=== PATIENT | female | born 1955 | race Caucasian/White ===

== ENCOUNTER → 2018-01-05 13:18 | Outpatient (CLI) | payer OTHER, SELFPAY ==
--- NOTE | 2018-01-05 13:22 | MM_ITS ---
MM Dig screening mamm BI w/CAD CAD Screening COMPARISON: Digital right mammogram 07/14/2017 and digital bilateral mammograms 01/09/2017 INDICATION: There is no personal or family history of breast cancer. There is been previous excisional biopsy right breast. TECHNIQUE: Standard CC and MLO images were obtained. R2 CAD reviewed. FINDINGS: There is a diffusely dense and heterogenic parenchyma which lessens the sensitivity of mammography. The biopsy site central portion right breast shows interval contraction from the previous studies as expected. Multiple benign-appearing calcination is or again seen in both breast most typical of sclerosing adenosis. There is no new or suspicious lesion in either breast and there are no suspicious microcalcifications. IMPRESSION: Dense parenchymal pattern with interval contraction of previous biopsy site and with no suspicious lesion seen recommend yearly follow-up BI-RADS Category: 2 Benign Finding(s) RECOMMENDED FOLLOW-UP: 1YR - 1 YEAR FOLLOW-UP (A letter has been sent to the patient regarding results of the study.)
== END ==
PROVIDERS: Family Provider Family Medicine; PCP Family Medicine; Visit Provider Obstetrics & Gynecology
DX: R92.8 Other abnormal and inconclusive findings on diagnostic imaging of breast (principal)
CPT/HCPCS: 77067

== ENCOUNTER → 2018-01-08 14:37 | Outpatient (POV) | payer OTHER, SELFPAY | PROVIDERS: Family Provider Family Medicine; PCP Family Medicine; Visit Provider Physician Assistant | DX: Z00.00 Encounter for general adult medical examination without abnormal findings (principal) ==

== ENCOUNTER → 2018-04-09 13:57 | Outpatient (POV) | payer OTHER, SELFPAY | PROVIDERS: Visit Provider Physician Assistant | DX: Z00.00 Encounter for general adult medical examination without abnormal findings (principal) ==

== ENCOUNTER → 2018-08-07 10:51 | Outpatient (CLI) | payer OTHER, SELFPAY ==
--- NOTE | 2018-08-07 10:54 | XR_ITS ---
XR shoulder LT min 2V HISTORY: ITS.REASON: LT SHOULDER PAIN ORDERING PHYSICIAN: Piero Basurto MD PATIENT AGE: 63 years Comparison: None FINDINGS: No fracture or dislocation. No lytic or blastic change. There is normal mineralization. There are mild osteoarthritic changes of the acromioclavicular joint. The glenohumeral joint has an unremarkable appearance. IMPRESSION: Minimal osteoarthritis of the AC joint otherwise negative left shoulder
== END ==
PROVIDERS: PCP Family Medicine; Visit Provider Family Medicine
DX: M25.512 Pain in left shoulder (principal)
CPT/HCPCS: 73030

== ENCOUNTER → 2019-02-05 10:09 | Outpatient (CLI) | payer OTHER, SELFPAY ==
--- NOTE | 2019-02-05 10:10 | MM_ITS ---
MM Dig screening mamm BI w/CAD CAD Screening COMPARISON: Digital mammograms with CAD 01/05/2018 and digital right mammogram with CAD 07/14/2017 INDICATION: There is no personal or family history of breast cancer. There has been a previous stereotactic biopsy right breast for benign disease. TECHNIQUE: Standard CC and MLO images were obtained. R2 CAD reviewed. FINDINGS: There is a diffusely dense and heterogenic parenchymal pattern lessening the sensitivity of mammography. There are scattered benign-appearing microcalcifications in each breast. There is minimal post biopsy scarring central portion of the right breast. There is arterial calcification in each breast. There is no suspicious lesion and no suspicious microcalcifications. IMPRESSION: Stable exam with no suspicious lesion seen recommend yearly follow-up BI-RADS Category: 2 Benign Finding(s) RECOMMENDED FOLLOW-UP: 1YR - 1 YEAR FOLLOW-UP (A letter has been sent to the patient regarding results of the study.)
== END ==
PROVIDERS: PCP Family Medicine; Visit Provider Obstetrics & Gynecology
DX: Z12.31 Encounter for screening mammogram for malignant neoplasm of breast (principal)
CPT/HCPCS: 77067

== ENCOUNTER → 2019-02-12 14:33 | Outpatient (CLI) | payer OTHER, SELFPAY | PROVIDERS: Visit Provider Family Medicine | DX: D64.9 Anemia, unspecified (principal) | CPT/HCPCS: 36415; 86850 ==

== ENCOUNTER 2019-02-13 08:40 | Outpatient (CLI) | payer OTHER, SELFPAY ==
[2019-02-13] VITALS (18 sets, daily range): BP systolic 96–132; BP diastolic 39–63; PULSE 82–91; RESP 16–18; TEMP 36.6–36.9; O2SAT 99; BMI 30.2
[2019-02-13 09:27] LABS: Hematocrit 25.3 % (37.0-47.0)
[2019-02-13 09:31] LABS: Hemoglobin 6.8 g/dL (12.2-16.2)
--- NOTE | 2019-02-13 10:16 | PC.NURSE ---
1013 - TRANSFUSION STARTED INFUSING AT 100 ML/HR AT THIS TIME.
--- NOTE | 2019-02-13 11:37 | PC.NURSE ---
1043 - INCREASED RATE TO 150 ML/HR AT THIS TIME.
--- NOTE | 2019-02-13 11:41 | PC.NURSE ---
1113 - INCREASED RATE TO 200 ML/HR AT THIS TIME.
--- NOTE | 2019-02-13 11:58 | PC.NURSE ---
RATE WAS INCREASED TO 250ML/HR AT 1143.
--- NOTE | 2019-02-13 12:28 | PC.NURSE ---
1225 - TRANSFUSION STARTED AT 100 ML/HR AT THIS TIME.
--- NOTE | 2019-02-13 13:43 | PC.NURSE ---
1255 - INCREASED RATE TO 150 ML/HR AT THIS TIME.
--- NOTE | 2019-02-13 13:50 | PC.NURSE ---
1325 - INCREASED RATE TO 200 ML/HR AT THIS TIME.
--- NOTE | 2019-02-13 14:19 | PC.NURSE ---
RATE INCREASED TO 250 ML/HR AT 1355.
--- NOTE | 2019-02-13 15:28 | PC.NURSE ---
1515 - BLOOD ALSO DRAWN FROM IV AT THIS TIME FOR 1 HR POST HGB/HCT.
[2019-02-13 15:45] LABS: Hemoglobin 9.4 g/dL (12.2-16.2)
== END 2019-02-13 16:00 | disposition home or self-care (01) ==
LOC: INF 08:56
PROVIDERS: Visit Provider Family Medicine
DX: D64.9 Anemia, unspecified (principal)
CPT/HCPCS: 36430; 85014; 85018; P9016

== ENCOUNTER → 2019-02-15 08:20 | Outpatient (CLI) | payer OTHER, SELFPAY ==
--- NOTE | 2019-02-15 08:29 | US_ITS ---
US transvaginal HISTORY: ITS.REASON: ovarian mass ORDERING PHYSICIAN: Gianni Carpio MD PATIENT AGE: 64 years Comparison: 01/16/2017 FINDINGS: The uterus is 5.4 x 5.4 x 4.4 cm with a combined endometrial thickness of 5 mm. Small amount fluid is present in the cul-de-sac and periuterine area. There are 2 fibroids in the region of body uterus one laterally on the right at 1 cm and one anteriorly at 1.4 cm. The right ovary is 5.4 x 5.4 cm and contains a complex cyst measuring 3.4 x 3 cm with some internal septations. This has developed since the previous exam. The left ovary has an unremarkable appearance of 1.7 cm. IMPRESSION: 1. Enlarged right ovary containing a complex cyst. There is a small amount fluid in the cul-de-sac Follow-up recommended. 2. There are 2 small uterine fibroids
== END ==
PROVIDERS: PCP Family Medicine; Visit Provider Obstetrics & Gynecology
DX: N83.9 Noninflammatory disorder of ovary, fallopian tube and broad ligament, unspecified (principal)
CPT/HCPCS: 76830

== ENCOUNTER → 2019-02-15 09:31 | Outpatient (CLI) | payer OTHER, SELFPAY ==
[2019-02-16 12:41] LABS: Cancer Antigen (CA) 125 13.9 U/mL (0.0-38.1)
== END ==
PROVIDERS: Visit Provider Obstetrics & Gynecology
DX: N83.9 Noninflammatory disorder of ovary, fallopian tube and broad ligament, unspecified (principal); C79.31 Secondary malignant neoplasm of brain
CPT/HCPCS: 36415; 86316

== ENCOUNTER → 2020-02-25 10:49 | Outpatient (POV) | payer MEDICARE, OTHER, SELFPAY | PROVIDERS: PCP Family Medicine; Visit Provider Physician Assistant | DX: Z00.00 Encounter for general adult medical examination without abnormal findings (principal) ==

== ENCOUNTER → 2020-05-15 15:05 | Outpatient (CLI) | payer MEDICARE, OTHER, SELFPAY ==
--- NOTE | 2020-05-15 15:09 | MM_ITS ---
PROCEDURE: MM DIG SCREENING MAMM BI W/CAD Digital Breast Tomosynthesis Included CLINICAL INDICATION: SCREENING There is no personal or family history of breast cancer. There has been a previous biopsy right breast for benign disease. COMPARISON: DMDXUR DIG MAMM-DX UNI-RT W/CAD from 07/14/2017 [facility] MM Dig screening mamm BI w/CAD from 01/05/2018 [facility] MM Dig screening mamm BI w/CAD from 02/05/2019 TECHNIQUE: Standard CC and MLO images and 3D Tomosynthesis was obtained. R2 CAD reviewed. FINDINGS: Prominent diffuse heterogenic fibroglandular densities are seen throughout both breasts. There is moderate arterial calcification in each breast. There are scattered benign-appearing microcalcifications in each breast many of which are typical of sclerosing adenosis and there is a biopsy clip right breast. The small area of scarring right breast from the previous biopsy is stable. There is no suspicious lesion and no suspicious microcalcifications. IMPRESSION: Moderately and diffusely dense parenchymal pattern with no suspicious lesions seen BI-RAD Category: 2 Benign Finding(s) FOLLOW-UP: 1YR 1 Year Follow-up (A letter has been sent to the patient regarding results of the study.) Dictated by: Dr. Richard Morris MD 05/18/2020 16:[address] Richard Morris MD in [place] 05/18/2020 16:42
== END ==
PROVIDERS: PCP Family Medicine; Visit Provider Obstetrics & Gynecology Gynecologic Oncology
DX: Z12.31 Encounter for screening mammogram for malignant neoplasm of breast (principal)
CPT/HCPCS: 77063; 77067

== ENCOUNTER → 2020-12-29 10:13 | Outpatient (CLI) | payer MEDICARE, OTHER, SELFPAY ==
[2020-12-29 12:01] LABS: Coronavirus 19 IgG Antibody Negative (Negative); Coronavirus 19 IgM Antibody Negative (Negative)
== END ==
PROVIDERS: Visit Provider Surgery
DX: Z11.52 Encounter for screening for COVID-19; Z12.11 Encounter for screening for malignant neoplasm of colon; Z01.818 Encounter for other preprocedural examination
CPT/HCPCS: 36415; 86328

== ENCOUNTER 2020-12-31 07:26 | Day surgery (SDC) | payer MEDICARE, OTHER, SELFPAY ==
[2020-12-29 13:44] VITALS: BMI 29.2
[2020-12-31 07:48] VITALS: BP 159/80; PULSE 76; RESP 18; TEMP 36.2; O2SAT 100
[2020-12-31 08:00] LABS: POC Glucose,Bedside 79 (70-110)
[2020-12-31 08:43] VITALS: O2SAT 100
--- NOTE | 2020-12-31 08:49 | HMH.ANESCL ---
[facility] Anesthesia Checklist - Structural Data Admitted From: Home Planned Operative Procedure/s: colonoscopy Consent for Planned Operative Procedure(s) Verified: Yes - Additional verifications Anesthesia Reactions: No - Airway Assessment C-Spine Mobility Assessed: Yes TMJ Mobility Assessed: Yes Dentition: Good Dentition - Neurological Assessment Level of Consciousness: Awake, Alert, Appropriate - Anesthesia Plan Anesthesia Risk discussed: Yes Anesthesia Plan: Verified ASA Class: III Anesthesia Type: MAC [facility] History I have reviewed the patient's past medical history: Yes Medical History: Reports:: Cancer (brain), Diabetes Mellitus Type 2 Denies:: Diabetes Mellitus Type 1, Lung Disease, MRSA, Seizures *Have you ever received a pneumonia vaccine?: Yes *Have you received a flu vaccine this season?: Yes Other Medical History: Reports: Anemia, Other Anesthesia experience/problems:: none Laterality Cases: Bilateral: Tonsillectomy Other Surgeries: Yes: Appendectomy, Cancer Surgery, Cholecystectomy, Colonoscopy, Tubal Ligation, Other Amputation: No Fractures: No - *Social History Last grade of school completed: High school graduate Smoking Status: Never smoker Alcohol Intake: never Alcohol Intake Frequency:: other Substance Use Type: denies use *Occupational Status:: retired Housing: house Household Members: spouse *Travel in the last 8 weeks: None Family Hx:: No significant family history
[2020-12-31 09:20] VITALS: BP 113/58; PULSE 84; RESP 18; TEMP 36.2; O2SAT 99
--- NOTE | 2020-12-31 09:21 | HMH.SCOPE ---
- Procedure: Date: 12/31/20 Patient Date of :: 1955 Procedure Performed:: Colonoscopy Indications:: History of colon polyps History of metastatic melanoma (metastatic colonic polyp at 43 cm) Performing Provider:: Gopal Velazquez MD Referring Provider:: . Sedation:: Monitored anesthesia care Procedure:: After informed consent was obtained the patient was taken to the endoscopy suite. Sedation ensued after the patient was transferred to the left lateral decubitus position. Pulse, blood pressure, and oxygen saturation were monitored throughout the procedure. Digital rectal exam revealed no significant abnormality. The colonoscope was placed in position. The entire colon was evaluated. The colonoscope was carefully removed and the patient was transferred to recovery in stable condition. Please see findings and specimens below for detail. Findings:: Mild to moderate hemorrhoidal cushions Bowel preparation moderate Moderate spasticity and tortuosity No obvious polypoid lesions No obvious metastatic lesions Normal colonic mucosa in and around tattoo site at 43 cm Specimens:: None Recommendations:: Repeat colonoscopy in 3-5 years Complications:: No immediate Estimated blood obtained (mL): 0
[2020-12-31 09:30] VITALS: BP 140/60; PULSE 82; RESP 18; O2SAT 96
[2020-12-31 09:50] VITALS: BP 152/62; PULSE 65; RESP 18; O2SAT 97
== END 2020-12-31 09:53 | disposition home or self-care (01) ==
LOC: OUTP 07:28
PROVIDERS: PCP Family Medicine; Visit Provider Surgery
PROC: 0DJD8ZZ Inspection of Lower Intestinal Tract, Via Natural or Artificial Opening Endoscopic (ICD-10-PCS; CPT G0105; principal; 2020-12-31 08:30)
DX: Z12.11 Encounter for screening for malignant neoplasm of colon (principal); K58.9 Irritable bowel syndrome, unspecified; K56.2 Volvulus; K64.9 Unspecified hemorrhoids; Z85.038 Personal history of other malignant neoplasm of large intestine; Z86.010 Personal history of colon polyps; Z85.841 Personal history of malignant neoplasm of brain; E11.9 Type 2 diabetes mellitus without complications; Z79.890 Hormone replacement therapy; Z79.84 Long term (current) use of oral hypoglycemic drugs; Z79.899 Other long term (current) drug therapy
CPT/HCPCS: G0105; 82962

== ENCOUNTER → 2021-05-18 10:42 | Outpatient (CLI) | payer MEDICARE, OTHER, SELFPAY ==
--- NOTE | 2021-05-18 10:45 | MM_ITS ---
PROCEDURE INFORMATION: Exam: MG Screening 3D Mammography Exam date and time: 05/18/2021 10:45 AM Age: 66 years old Clinical indication: Screening mammogram TECHNIQUE: Imaging protocol: Screening tomosynthesis and 2D mammography including computer-aided detection (CAD) when performed. COMPARISON: 1. MG MM DIG SCREENING MAMM BI W/CAD 05/15/2020 3:09 PM 2. MG [facility] MM Dig screening mamm BI w/CAD 02/05/2019 10:27 AM 3. MG [facility] MM Dig screening mamm BI w/CAD 01/05/2018 1:45 PM 4. MG DMDXUR DIG MAMM-DX UNI-RT W/CAD 07/14/2017 1:08 PM FINDINGS: MAMMOGRAPHY: Breast composition: The breast tissue is heterogeneously dense, which may obscure small masses. Mass: See Asymmetric density finding. Architectural distortion: Stable postoperative distortion in the right breast. Calcifications: Stable extensive groups and clusters the calcifications are present. No new or suspicious cluster of microcalcifications have developed. Asymmetric density: Stable focal asymmetries are present in the bilateral breast. No new or morphologically suspicious nodule has developed to suggest malignancy. Skin thickening: None. Axillary adenopathy: None. IMPRESSION: No mammographic evidence of malignancy. Recommend annual screening mammography unless otherwise clinically indicated. ASSESSMENT: BI-RADS category 2: Benign
== END ==
PROVIDERS: PCP Family Medicine; Visit Provider Obstetrics & Gynecology Gynecologic Oncology
DX: Z12.31 Encounter for screening mammogram for malignant neoplasm of breast (principal)
CPT/HCPCS: 77063; 77067

== ENCOUNTER 2022-05-11 15:32 | Emergency (ER) | payer MEDICARE, OTHER, SELFPAY ==
[2022-05-11] VITALS (10 sets, daily range): BP systolic 132–175; BP diastolic 47–76; PULSE 90–109; RESP 18–20; TEMP 37.2–39.1; O2SAT 95–100; BMI 32.3
--- NOTE | 2022-05-11 15:44 | XR_ITS ---
FINAL REPORT CLINICAL HISTORY: fever COMPARISON: 01/31/2017 FINDINGS: A single portable view of the chest was obtained. The heart size and pulmonary vascularity are within normal limits. The mediastinum is within normal limits. No acute pulmonary abnormality is identified. The bony thorax is intact. IMPRESSION: No active cardiopulmonary disease. Reviewed, Interpreted and Dictated by Wade Mercado III, MD Transcribed by Ratna Fernandez Authenticated and [facility]
--- NOTE | 2022-05-11 16:02 | PC.NURSE ---
family was at nurses station asking about pt, wanting to know if pt had covid. Informed family that pt was tested but results were still pending, family decided to wait in the lobby until further testing was back.
--- NOTE | 2022-05-11 16:04 | PC.NURSE ---
MARCIAL SAMANO at
--- NOTE | 2022-05-11 16:04 | PC.NURSE ---
pt was able answer question appropriate, states she is unsure while she is here, she feels fine.
--- NOTE | 2022-05-11 16:15 | PC.NURSE ---
out to lobby to speak with pts family per their request to no enter pt room at this time r/t covid results pending at this time. Pt family gave health hx information on pt, reports pt takes hydrocortisone twice daily r/t she does not produce steroids . Pt family gave me pt medication list. Also reports pt has hx of melanoma pt is currently in remission but does take immunotherapy treatments monthly.
--- NOTE | 2022-05-11 16:21 | CT_ITS ---
PROCEDURE INFORMATION: Exam: CT Head Without Contrast Exam date and time: 05/11/2022 4:26 PM Age: 67 years old Clinical indication: Altered mental status/memory loss; Additional info: AMS TECHNIQUE: Imaging protocol: Computed tomography of the head without contrast. Radiation optimization: All CT scans at this facility use at least one of these dose optimization techniques: automated exposure control; mA and/or kV adjustment per patient size (includes targeted exams where dose is matched to clinical indication); or iterative reconstruction. COMPARISON: No relevant prior studies available. FINDINGS: Brain: Age related brain involution is present. No acute intracranial hemorrhage, mass effect, midline shift, or brain herniation. Diffuse subcortical and periventricular white matter hypodensities are most in favor with chronic small vessel disease. More pronounced focal small vessel disease versus encephalomalacia in the left parietal periventricular white matter. Lim-white matter differentiation remains well preserved. Intracranial atherosclerosis is present. Cerebral ventricles: There is ex vacuo ventriculomegaly. Paranasal sinuses: There is fluid within the sinuses, consistent with sinusitis. Mastoid air cells: Visualized mastoid air cells are well aerated. Bones/joints: Left parietal craniotomy without complications. No acute skeletal abnormality or aggressive osseous lesion. Soft tissues: Unremarkable. IMPRESSION: No acute intracranial pathology.
--- NOTE | 2022-05-11 16:40 | PC.NURSE ---
assisted pt to bathroom, pt pants changed and placed in a gown with new sheets placed on bed. PT states she is feeling better.
--- NOTE | 2022-05-11 16:40 | PC.NURSE ---
pt return from radiology via wheelchair
[2022-05-11 16:52] LABS: Influenza A, PCR Not Detected (NotDetected); Influenza B, PCR Not Detected (NotDetected); Microscopic, Urine URINE MICROSCOPIC (MICROSCOPIC)
[2022-05-11 16:56] LABS: Appearance,Urine CLEAR (Clear); Bilirubin,Urine Negative (Negative); Blood, Urine 1+ (Negative); Color,Urine YELLOW (Yellow); Glucose,Urine (UA) Negative (Negative); Ketones,Urine Negative (Negative); Leukocyte Esterase,Urine 1+ (Negative); Nitrate,Urine Negative (Negative); PH,Urine 7.5 (5.0-8.5); Protein,Urine Negative (Negative); Specific Gravity, Urine 1.015 (1.005-1.030); Urobilinogen,Urine 0.2 EU/dl (0.2)
[2022-05-11 16:59] LABS: Basophils # 0.1 K/mm3 (0-0.2); Basophils % 0.7 % (0.1-2.0); Chloride 101 mmol/L (98-107); Eosinophils # 0.1 K/mm3 (0.0-0.4); Eosinophils % 0.8 % (0.1-12.0); Hematocrit 42.5 % (37.0-47.0); Hemoglobin 14.7 g/dL (12.2-16.2); Lymphocytes # 1.3 K/mm3 (0.7-4.5); Lymphocytes % 17.8 % (10-50); Mean Corpuscular HGB Conc 34.5 g/dL (31.8-35.4); Mean Corpuscular Hemoglobin 29.6 pg (27.0-31.2); Mean Corpuscular Volume 85.8 fl (81-99); Mean Platelet Volume 7.5 fl (7.4-10.4); Monocytes # 0.6 K/mm3 (0.1-1.0); Monocytes % 7.8 % (1.7-9.3); Neutrophils # 5.2 K/mm3 (1.8-7.8); Neutrophils % 72.9 % (37.0-80.0); Platelet Count 137 K/mm3 (142-424); Red Blood Count 4.95 M/mm3 (4.20-5.40); Red Cell Distribution Width 13.4 % (11.5-17.5); White Blood Count 7.1 K/mm3 (4.8-10.8)
[2022-05-11 17:00] LABS: Potassium 3.8 mmoL/L (3.5-5.1); Sodium 133 mmol/L (136-145)
[2022-05-11 17:02] LABS: Blood Urea Nitrogen 24 mg/dl (7-17); Creatinine Clearance Estimated 78 mL/min (50-200); Estimated Glomerular Filt Rate 55 ml/min (>60); GFR (African American) 67 ML/MIN (>60)
[2022-05-11 17:03] LABS: Alanine Aminotransferase 16 U/L (12-78); Albumin Level 4.3 g/dl (3.5-5.0); Albumin/Globulin Ratio 1.5 (1.1-1.8); Alkaline Phosphatase 61 U/L (38-126); Anion Gap 12.8 mEq/L (5-15); Aspartate Amino Transferase 40 U/L (14-36); Bilirubin,Total 1.1 mg/dl (0.2-1.3); Calcium 9.2 mg/dl (8.4-10.2); Carbon Dioxide 23 mmol/L (22.0-30.0); Globulin 2.8 g/dL (1.3-3.2); Glucose 110 mg/dl (74-100); Lipase 120 U/L (23-300); Total Protein,Serum 7.1 g/dl (6.3-8.2)
--- NOTE | 2022-05-11 17:08 | PC.NURSE ---
updated pt family at this time, will be approx 30 minutes until covid swab result per lab staff. Pt family was wanting to visit with pt but they want to wait on covid swab results. Notified family pt is resting in bed at this time and we will update them when swab results are available.
[2022-05-11 17:30] LABS: Troponin I < 0.01 ng/ml (0.00-0.034)
[2022-05-11 17:34] LABS: Coronavirus 19, PCR Detected (NotDetected)
[2022-05-11 17:37] LABS: Bacteria,Urine 2+ /lpf; Squamous Epithelial Cell,Urine Occasional #/hpf (0-5)
[2022-05-11 17:38] LABS: Lactic Acid 1.7 mmol/L (0.7-2.1)
--- NOTE | 2022-05-11 17:44 | PC.NURSE ---
updated pt family with pt POC at this time
--- NOTE | 2022-05-11 17:51 | PC.NURSE ---
gave pt socks, explained to pt and family that due to pt fever we cant give a warm blanket at this time. pt and family understandable
--- NOTE | 2022-05-11 19:06 | HMH.EDFEV ---
ED Disposition Clinical Impression: Bronchitis due to COVID-19 virus Disposition: Home, Self-Care Condition on Discharge: Good Instructions: Coronavirus Disease 2019 Prescriptions: methylPREDNISolone [Medrol 4mg tab] 4 mg PO DIRECTED #21 tab Transmission Status: Pending to [id number] Referrals: Piero Basurto MD [Primary Care Provider] - - Critical Care Critical Care Time: No Attestation: On 05/11/22, the high probability of a clinically significant, sudden or life threatening deterioration of the following system(s) required my full and direct attention, intervention and personal management. The time I documented below is in addition to time spent performing reported procedures but includes the following listed in this critical care notation. Medical Decision Making - Medical Records Medical records reviewed: Yes: I reviewed the patient's medical records. - Zaid Inquiry Pt receiving controlled substance: No Vital Signs: 05/11/22 15:32 05/11/22 15:45 05/11/22 16:00 Temperature 102.3 F H Temperature Source Oral Pulse Rate 109 H 103 H Pulse Rate [Left Radial] 102 H Respiratory Rate 20 Blood Pressure 175/75 H 157/73 H Blood Pressure [Right Arm] 175/75 H Blood Pressure Mean 105 Blood Pressure Mean [Right Arm] 108 Blood Pressure Source Automatic Cuff Blood Pressure Source [Right Arm] Automatic Cuff Blood Pressure Position Sitting Blood Pressure Position [Right Arm] Sitting 02 Sat by Pulse Oximetry 100 98 95 Oxygen Delivery Method Room Air Room Air 05/11/22 16:52 05/11/22 17:00 05/11/22 17:04 Temperature 100.2 F H Temperature Source Oral Pulse Rate 103 H 98 H Pulse Rate [Left Radial] Respiratory Rate Blood Pressure 132/61 136/76 Blood Pressure [Right Arm] Blood Pressure Mean 101 96 Blood Pressure Mean [Right Arm] Blood Pressure Source Blood Pressure Source [Right Arm] Blood Pressure Position Blood Pressure Position [Right Arm] 02 Sat by Pulse Oximetry 95 99 Oxygen Delivery Method 05/11/22 17:30 05/11/22 18:00 05/11/22 18:30 Temperature 101.2 F H Temperature Source Pulse Rate 94 H 102 H 92 H Pulse Rate [Left Radial] Respiratory Rate Blood Pressure 138/48 L 132/47 L 136/68 Blood Pressure [Right Arm] Blood Pressure Mean 78 84 91 Blood Pressure Mean [Right Arm] Blood Pressure Source Blood Pressure Source [Right Arm] Blood Pressure Position Blood Pressure Position [Right Arm] 02 Sat by Pulse Oximetry 100 100 97 Oxygen Delivery Method - Lab Data Lab Results 05/11/22 16:35: WBC 7.1, RBC 4.95, Hgb 14.7, Hct 42.5, MCV 85.8, MCH 29.6, MCHC 34.5, RDW 13.4, Plt Count 137 L, MPV 7.5, Neut % (Auto) 72.9, Lymph % (Auto) 17.8, [place] % (Auto) 7.8, Eos % (Auto) 0.8, Baso % (Auto) 0.7, Neut # (Auto) 5.2, Lymph # (Auto) 1.3, [place] # (Auto) 0.6, Eos # (Auto) 0.1, Baso # (Auto) 0.1 05/11/22 16:35: Sodium 133 L, Potassium 3.8, Chloride 101, Carbon Dioxide 23, Anion Gap 12.8, BUN 24 H, Creatinine 1.00, Estimated Creat Clear 78, Estimated GFR 55 L, Est GFR ( Amer) 67, Glucose 110 H, Calcium 9.2, Total Bilirubin 1.1, AST 40 H, ALT 16, Alkaline Phosphatase 61, Troponin I < 0.01, Total Protein 7.1, Albumin 4.3, Globulin 2.8, Albumin/Globulin Ratio 1.5, TSH 1.00 05/11/22 16:35: SARS-CoV-2 (PCR) Detected A, Influenza A Untype (PCR) Not detected, Influenza Type B (PCR) Not detected 05/11/22 16:35: Urine Color Yellow, Urine Appearance Clear, Urine pH 7.5, Ur Specific Jbphh 1.015, Urine Protein Negative, Urine Glucose (UA) Negative, Urine Ketones Negative, Urine Blood 1+, Urine Nitrate Negative, Urine Bilirubin Negative, Urine Urobilinogen 0.2, Ur Leukocyte Esterase 1+ A, Urine RBC 3-5, Urine WBC 3-5, Ur Squamous Epith Cells Occasional, Urine Bacteria 2+ 05/11/22 16:35: Lipase 120 05/11/22 17:03: Lactate 1.7 Result diagrams: 05/11/22 16:35 05/11/22 16:35 Orders (Tests/Meds): ED MEDI
== END 2022-05-11 19:41 | disposition home or self-care (01) ==
PROVIDERS: Emergency Provider Emergency Medicine; PCP Family Medicine
DX: U07.1 COVID-19 (principal); J40 Bronchitis, not specified as acute or chronic; N39.0 Urinary tract infection, site not specified; Z79.890 Hormone replacement therapy; Z79.84 Long term (current) use of oral hypoglycemic drugs; Z79.899 Other long term (current) drug therapy; Z85.841 Personal history of malignant neoplasm of brain; E11.9 Type 2 diabetes mellitus without complications; D64.9 Anemia, unspecified
CPT/HCPCS: 70450; 71045; 80053; 81001; 83605; 83690; 84443; 84484; 85025; 87086; 87088; 87186; 96365; 96375; 99284; C9803; U0003; U0005

== ENCOUNTER → 2022-07-12 09:49 | Outpatient (CLI) | payer MEDICARE, OTHER, SELFPAY ==
--- NOTE | 2022-07-12 09:54 | MM_ITS ---
PROCEDURE INFORMATION: Exam: MG Bilateral Screening 3D Mammography Exam date and time: 07/12/2022 9:47 AM Age: 67 years old Clinical indication: Screening examination TECHNIQUE: Imaging protocol: Bilateral Screening tomosynthesis and 2D mammography including computer-aided detection (CAD) when performed. COMPARISON: 1. MG MM DIG SCREENING MAMM BI W/CAD 05/18/2021 10:44 AM 2. MG MM DIG SCREENING MAMM BI W/CAD 05/15/2020 3:09 PM FINDINGS: MAMMOGRAPHY: Breast composition: The breasts are heterogeneously dense, which may obscure small masses. Mass: None. Architectural distortion: None. Calcifications: No suspicious calcifications. Asymmetric density: None. Skin thickening: None. Axillary adenopathy: None. IMPRESSION: No mammographic evidence of malignancy. Annual screening is recommended unless otherwise clinically indicated. ASSESSMENT: BI-RADS Category 1: Negative
== END ==
PROVIDERS: PCP Family Medicine; Visit Provider Obstetrics & Gynecology Gynecologic Oncology
DX: Z12.31 Encounter for screening mammogram for malignant neoplasm of breast (principal)
CPT/HCPCS: 77063; 77067

== ENCOUNTER → 2022-09-07 14:42 | Outpatient (CLI) | payer MEDICARE, OTHER, SELFPAY ==
[2022-09-07 15:07] LABS: Coronavirus 19, PCR Not Detected (NotDetected); Influenza A, PCR Not Detected (NotDetected); Influenza B, PCR Not Detected (NotDetected)
[2022-09-07 15:11] LABS: Basophils % 0.4 % (0.1-2.0); Eosinophils # 0.2 K/mm3 (0.0-0.4); Eosinophils % 1.5 % (0.1-12.0); Hematocrit 43.9 % (37.0-47.0); Hemoglobin 14.5 g/dL (12.2-16.2); Lymphocytes # 1.3 K/mm3 (0.7-4.5); Lymphocytes % 11.4 % (10-50); Mean Platelet Volume 8.2 fl (7.4-10.4); Monocytes # 0.6 K/mm3 (0.1-1.0); Monocytes % 5.3 % (1.7-9.3); Neutrophils # 9.5 K/mm3 (1.8-7.8); Neutrophils % 81.3 % (37.0-80.0); Platelet Count 226 K/mm3 (142-424); Red Blood Count 4.83 M/mm3 (4.20-5.40); Red Cell Distribution Width 14.3 % (11.5-17.5); White Blood Count 11.7 K/mm3 (4.8-10.8)
[2022-09-07 16:21] LABS: Strep Scrn Group A (Rapid) Negative (Negative)
== END ==
PROVIDERS: PCP Family Medicine; Visit Provider Physician Assistant
DX: Z20.822 Contact with and (suspected) exposure to COVID-19 (principal)
CPT/HCPCS: 36415; 85025; 87430; C9803; U0003; U0005

== ENCOUNTER → 2022-10-20 20:38 | Outpatient (CLI) | payer MEDICARE, OTHER, SELFPAY | PROVIDERS: PCP Student in an Organized Health Care Education/Training Program; Visit Provider Student in an Organized Health Care Education/Training Program | DX: U07.1 COVID-19 | CPT/HCPCS: C9803; U0003; U0005 ==

== ENCOUNTER → 2022-11-29 10:17 | Outpatient (CLI) | payer MEDICARE, OTHER, SELFPAY ==
--- NOTE | 2022-11-29 10:21 | CT_ITS ---
FINAL REPORT TECHNIQUE: Axial CT images were performed from the lung bases through the pubic symphysis. Coronal reformats were submitted and reviewed. This study was performed with techniques to keep radiation doses as low as reasonably achievable (ALARA). Individualized dose reduction techniques using automated exposure control or adjustment of mA and/or kV according to the patient's size were employed. CLINICAL HISTORY: HEMATURIA FINDINGS: Abdomen: The lung bases are clear. There are postoperative changes in the right upper quadrant. The gallbladder is absent. The liver, spleen and pancreas are unremarkable. There are no adrenal masses. There is no nephrolithiasis. There is no hydronephrosis. Pelvis: The appendix is not identified. There are no distal ureteral stones. The urinary bladder is unremarkable. There is a trace amount of pelvic free fluid of uncertain etiology. There is a fat containing right inguinal hernia. IMPRESSION: No acute intra-abdominal process. Reviewed, Interpreted and Dictated by Donald Noble MD Transcribed by Mj Barroso Authenticated and . [facility]
== END ==
PROVIDERS: PCP Family Medicine; Visit Provider Family Medicine
DX: R31.29 Other microscopic hematuria (principal)
CPT/HCPCS: 74176

== ENCOUNTER → 2023-05-16 09:25 | Outpatient (POV) | payer MEDICARE, OTHER, SELFPAY | PROVIDERS: Visit Provider Dermatology | DX: Z00.00 Encounter for general adult medical examination without abnormal findings (principal) ==

== ENCOUNTER → 2023-08-03 15:31 | Outpatient (CLI) | payer MEDICARE, OTHER, SELFPAY ==
--- NOTE | 2023-08-03 15:35 | MM_ITS ---
PROCEDURE INFORMATION: Exam: MG Bilateral Screening 3D Mammography Exam date and time: 08/03/2023 3:36 PM Age: 68 years old Clinical indication: Screening mammogram TECHNIQUE: Imaging protocol: Bilateral Screening tomosynthesis and 2D mammography including computer-aided detection (CAD) when performed. COMPARISON: 1. MG MM DIG SCREENING MAMM BI W/CAD 07/12/2022 9:54 AM 2. MG MM DIG SCREENING MAMM BI W/CAD 05/18/2021 10:44 AM 3. MG MM DIG SCREENING MAMM BI W/CAD 05/15/2020 3:09 PM FINDINGS: MAMMOGRAPHY: Breast composition: The breast is heterogeneously dense, which may obscure small masses. Mass: 0.7 cm possible obscured mass within the upper outer posterior left breast should be further assessed with spot views in CC/MLO projection. Ultrasound should also be performed. Architectural distortion: No new or suspicious architectural distortion. Calcifications: Calcifications within the upper outer posterior left breast should be assessed with spot MAGNIFICATION views in CC/ML projection for morphologic characterization. Asymmetric density: No new or suspicious asymmetric density is present Skin thickening: None. Axillary adenopathy: None. IMPRESSION: 1. Calcifications within the upper outer posterior left breast should be assessed with spot MAGNIFICATION views in CC/ML projection for morphologic characterization. 2. 0.7 cm possible obscured mass within the upper outer posterior left breast should be further assessed with spot views in CC/MLO projection. Ultrasound should also be performed. ASSESSMENT: BI-RADS category 0: Incomplete-need additional imaging evaluation and/or prior mammograms for comparison.
== END ==
PROVIDERS: PCP Family Medicine; Visit Provider Family Medicine
DX: Z12.31 Encounter for screening mammogram for malignant neoplasm of breast (principal)
CPT/HCPCS: 77063; 77067

== ENCOUNTER → 2023-08-30 12:52 | Outpatient (CLI) | payer MEDICARE, OTHER, SELFPAY ==
--- NOTE | 2023-08-30 13:21 | MM_ITS ---
PROCEDURE INFORMATION: Exam: US Left Breast, Complete MG Bilateral Diagnostic Breast Tomosynthesis Exam date and time: 08/30/2023 2:21 PM Age: 68 years old Clinical indication: Patient recalled on the basis of a screening mammogram for further evaluation; Bilateral breasts TECHNIQUE: Imaging protocol: Complete ultrasound of all four quadrants of the left breast and the retroareolar regions, including ultrasound of the axilla when performed. Bilateral Diagnostic tomosynthesis and 2D mammography including computer-aided detection (CAD) when performed. Unilateral or bilateral exam. COMPARISON: MG MM DIG MAMM BI DX W/CAD 08/30/2023 1:08 PM FINDINGS: MAMMOGRAPHY: Digital diagnostic magnification views of both upper outer quadrants demonstrate innumerable round and oval calcifications. No significant pleomorphism. The calcifications likely reflect benign sclerosing adenosis. Digital diagnostic spot compression views of the left breast and 90 degree lateral view of the left breast demonstrate normal overlapping fibroglandular structures without persistent mass or asymmetry identified. ULTRASOUND: Sonographic images of the left breast including the retroareolar region, all 4 quadrants and the axilla demonstrates a well-circumscribed uniformly hypoechoic mass in the 3 o'clock retroareolar region measuring 0.3 x 0.3 cm in dimension. The finding is likely benign in etiology. No architectural distortion or acoustical shadowing. No skin thickening or axillary adenopathy. IMPRESSION: 1. Probably benign fairly widespread calcifications bilaterally. A six-month follow-up diagnostic bilateral mammogram magnification views of both upper outer quadrants are recommended to ensure stability over time. 2. Sonographically visible probably benign left 3 o'clock retroareolar mass. A six-month follow-up targeted left breast ultrasound is recommended to ensure stability over time. ASSESSMENT: BI-RADS Category 3: Probably benign
== END ==
PROVIDERS: PCP Family Medicine; Visit Provider Family Medicine
DX: R92.8 Other abnormal and inconclusive findings on diagnostic imaging of breast (principal)
CPT/HCPCS: 76641; 77062; 77066; G0279

== ENCOUNTER 2023-12-05 11:39 | Outpatient (POV) | payer MEDICARE, OTHER, SELFPAY | END 2023-12-05 23:59 | disposition home or self-care (01) | LOC: SC 11:41 | PROVIDERS: PCP Family Medicine; Visit Provider Dermatology | DX: Z00.00 Encounter for general adult medical examination without abnormal findings (principal) ==

== ENCOUNTER 2024-01-30 15:41 | Outpatient (POV) | payer MEDICARE, OTHER, SELFPAY | END 2024-01-30 23:59 | disposition home or self-care (01) | LOC: SC 15:41 | PROVIDERS: PCP Family Medicine; Visit Provider Dermatology | DX: Z00.00 Encounter for general adult medical examination without abnormal findings (principal) ==

== ENCOUNTER 2024-03-08 13:26 | Outpatient (CLI) | payer MEDICARE, OTHER, SELFPAY ==
--- NOTE | 2024-03-08 13:36 | US_ITS ---
PROCEDURE INFORMATION: Exam: US Left Breast, Complete MG Bilateral Diagnostic Breast Tomosynthesis Exam date and time: 03/08/2024 2:25 PM Age: 69 years old Clinical indication: Short-term radiographic followup; Bilateral breasts; calcifications and sonographically detected left breast mass TECHNIQUE: Imaging protocol: Complete ultrasound of all four quadrants of the left breast and the retroareolar regions, including ultrasound of the axilla when performed. Bilateral Diagnostic tomosynthesis and 2D mammography including computer-aided detection (CAD) when performed. Unilateral or bilateral exam. COMPARISON: US BREAST LT COMPLETE 08/30/2023 2:21 PM FINDINGS: MAMMOGRAPHY: Breast composition: The breasts are heterogeneously dense, which may obscure small masses. Breast mammogram findings: There is no stellate mass for architectural distortion in either breast to suggest malignancy. Magnification views of both upper outer quadrants demonstrates stable fairly widespread calcifications. No gross interval change in the size, number, or distribution of the calcifications. No skin thickening or axillary adenopathy. ULTRASOUND: Breast ultrasound findings: Sonographic images of the left breast including the retroareolar region, all 4 quadrants and the axilla do not demonstrate any solid or cystic masses. Previously noted 3 o'clock axis retroareolar mass is not seen on the current examination. No architectural distortion or acoustical shadowing. No skin thickening or axillary adenopathy. IMPRESSION: No mammographic or sonographic evidence of malignancy. Stable probably benign fairly widespread upper outer partial calcifications bilaterally compared to prior mammogram dated 08/30/2023. A six-month follow-up diagnostic bilateral mammogram with magnification views of both upper outer quadrants are recommended for continued close surveillance ASSESSMENT: BI-RADS Category 3: Probably benign.
== END 2024-03-08 23:59 | disposition home or self-care (01) ==
LOC: RAD 13:27
PROVIDERS: PCP Family Medicine; Visit Provider Family Medicine
DX: R92.8 Other abnormal and inconclusive findings on diagnostic imaging of breast (principal)
CPT/HCPCS: 76641; 77062; 77066; G0279

== ENCOUNTER 2024-10-11 11:05 | Outpatient (CLI) | payer MEDICARE, OTHER, SELFPAY ==
--- NOTE | 2024-10-11 11:10 | MM_ITS ---
PROCEDURE INFORMATION: Exam: MG Bilateral Diagnostic Mammography Exam date and time: 10/11/2024 11:00 AM Age: 69 years old Clinical indication: Follow-up prior for probably benign bilateral breast calcifications. TECHNIQUE: Imaging protocol: Diagnostic mammography of the bilateral breasts including computer-aided detection (CAD) when performed. Bilateral exam. COMPARISON: 1. MG MM DIG MAMM BI DX W/CAD 03/08/2024 1:45 PM 2. MG MM DIG MAMM BI DX W/CAD 08/30/2023 1:08 PM FINDINGS: MAMMOGRAPHY: Breast composition: The breasts are heterogeneously dense, which may obscure small masses. Breast mammogram findings: Bilateral magnification views were obtained. Redemonstrated punctate calcifications with diffuse bilateral distribution, grossly unchanged since at least 08/30/2023. Elsewhere, there are no suspicious masses or calcifications in either partially visualized breast. IMPRESSION: Bilateral breast calcifications, unchanged since 08/30/2023 and probably benign. Recommend six-month follow-up bilateral diagnostic mammogram with including magnification views to ensure stability. ASSESSMENT: BI-RADS Category 3: Probably benign.
== END 2024-10-11 23:59 | disposition home or self-care (01) ==
LOC: RAD 11:08
PROVIDERS: PCP Family Medicine; Visit Provider Family Medicine
DX: R92.8 Other abnormal and inconclusive findings on diagnostic imaging of breast (principal)
CPT/HCPCS: 77062; 77066; G0279

== ENCOUNTER 2025-04-17 12:29 | Outpatient (CLI) | payer MEDICARE, OTHER, SELFPAY ==
--- OUTSIDE RECORDS SUMMARY | 2024-08-08 05:00 | XMS_ITS ---
[facility] Address [address] [place] [id number] Care Team Providers Care Scientologist Name Role Phone Helga Basurto Primary Care Provider [phone] Allergies Allergen (clinical drug ingredient) Drug/Non Drug Allergy documented on EMR Reaction Allergy Type Onset Date Status hydromorphone Dilaudid hard to wake up after surgery Drug Allergy Active REASON FOR VISIT 6 month follow up, Needs bone density screening & flu vaccine Medications Medication SIG (Take, Route, Frequency, Duration) Notes Start Date End Date Status FeroSul 325 (65 Fe) MG TAKE 1 TABLET BY MOUTH TWICE DAILY; Duration: 30 Active Rosuvastatin Calcium 10 MG 1 tablet Oral ly Once a day Active amLODIPine Besylate 5 MG 1 tablet Orally Once a day Active Levothyroxine Sodium 75 MCG 1 tab(s) ora lly once a day Active metFORMIN HCl 850 MG take 1 tablet by mouth twice daily Active Hydrocortisone 10 MG 1.5 tab(s)qAM, 1 ta b qPM orally 2 times a day Active medroxyPROGESTERone Acetate 2.5 MG 1 tab(s) orally once a day; Duration: 28 day(s) Active Metamucil Fiber - as directed Orally Active Pantoprazole Sodium 20 MG 1 tablet Orall y Once a day Active Estradiol 1 MG 1 tab(s) orally once a day; Duration: 30 day(s) Active Immunizations Vaccine Route Administration Date Status Comme nts Prevnar (PCV20) IM Intramuscular 08/08/2024 Administered Problems Problem Type SNOMED Code ICD Code Onset Dates Problem Status W/U Status Risk Notes Problem Hyperlipidemia due to type 2 diabetes mellitus (disorder) (588764837790968) Hyperlipidemia associated with type 2 diabetes mellitus (E11.69) Active confirmed Vital Signs Blood pressure systolic 126 mm Hg 08/08/20 24 Blood pressure diastolic 64 mm Hg 024 Heart Rate 82 /min 08/08/2024 Height 63.50 in 08/08/2024 Weight 161 lbs 08/08/2024 BMI 28.07 kg/m2 08/08/2024 Encounters Encounter Location Date Provider Diagnosis [facility] [address] [facility] [address] [place] [id number] 08/08/2024 Helga Basurto Hyperlipidemia associated with type 2 diabetes mellitus E11.69 ; Type 2 diabetes mellitus without complication, without long-term current use of insulin E11.9 ; Encounter for immunization Z23 ; Dyslipidemia E78.5 ; HTN (hypertension) I10 and Acquired hypothyroidism E03.9 Assessments Encounter Date Diagnosis (ICD Code) Assessment Notes Treatment Notes Treatment Clinical Notes Section Notes 08/08/2024 Hyperlipidemia associated with type 2 diabetes mellitus (ICD-10 - E11.69) 08/08/2024 Type 2 diabetes mellitus without complication, without long-term current use of insulin (ICD-10 - E11.9) 08/08/2024 Encounter for immunization (ICD-10 - Z23) 08/08/2024 Dyslipidemia (ICD-10 - E78.5) 08/08/2024 HTN (hypertension) (ICD-10 - I10) 08/08/2024 Acquired hypothyroidism (ICD-10 - E03.9) Plan Of Treatment Medication Medication Name Sig Start Date Stop Date Notes Rosuvastatin Calcium 10 MG 1 tablet Orally Once a day amLODIPine Besylate 5 MG 1 tablet Orally Once a day Levothyroxine Sodium 75 MCG 1 tab(s) orally once a day metFORMIN HCl 850 MG take 1 tablet by [facility] twice daily Next Appt Details Follow Up: 6 Months, Reason: Provider Name:Helga Bliss, 08/07/2025 09:15:00 AM, [address] [facility], [address], [place], [id number], Progress Notes * LUIS WHELANDOB:[birth year] (70 yo F)Acc No.[id number]:08/08/2024 Progress Notes Patient: Arthur LUIS MIR Provider: Helga Basurto M.D. :1955 A ge:69 Y S ex:Female Date:08/08/2024 Address:[place], [id number] Subjective: * Chief Complaints: * 1 . 6 month follow up. 2. Needs bone density screening & flu vaccine. * HPI: H PI: Pt presents today for a 6 month check up. Pt has had labs drawn earlier this week (see labs). Pt sts that she needs a refill of Metformin. Pt sts that she has no new concerns or complaints at this time. E ndocrinology: She has been compliant with diet and her weight has been stable. D ermatology: She continues to follow with the [facility] regarding her melanoma. No new concerns. * ROS: D ERMATOLOGY: no R [place]. n o H jeffery. G ASTROENTEROLOGY: no N ausea. n o V omiting. U ROLOGY: no D ifficulty urinating. n o B lood in urine. * Medical History: M elanoma/ scalp/ - dx. 2013 , Melanoma - metastatic to brain - [facility] - Oct 15, 2018 - Dr. Seymour Li, s/p immunotherapy 2018 to 2021, Type 2 diabetes, Hypothyroidism, Adrenal insufficiency -follows with [facility], COVID 09/2022, Hiatal hernia by EGD\ . * Surgical History: T onsillectomy , Cholecystectomy with Appendectomy , BTL , Colonoscopy - normal x 2 , [place] - T-Ureña injections - Melanoma treatments 12/22/2015 (every two weeks), Colonoscopy and Endoscopy 02/05/2016, [facility]-Dr Carpio 01/2017, Craniotomy for resection of melanoma met- [facility] ) 11/06/2018, GammaKnife Radiation x5 - metastatic melanoma 12/11/2018, Colonoscopy/ Dr. Velazquez/ polyp x 2 02/02/2019, Colonoscopy/ [facility]/ normal 12/31/2020. * Hospitalization/Major Diagno stic Procedure: c anselmo , Back Pain- [facility] 10/23/2013, [facility] 05/2016, MRI- [facility] 10/15-, Brain Surgery- [facility] 11/10. * Family History: F ather: , stroke. M other: alive. 1 son(s) , 1 daughter(s) - healthy. . * Social History: C URRENT TOBACCO USE S moking Status: Patient does NOT smoke. H ome smoke detector use: yes. Marital Status: . Past smoking status: no. Alcohol: No. * Medications: T aking Metamucil Fiber - Tablet Chewable as directed Orally , Taking medroxyPROGESTERone Acetate 2.5 MG Tablet 1 tab(s) orally once a day , Taking Estradiol 1 MG Tablet 1 tab(s) orally once a day , Taking Pantoprazole Sodium 20 MG Tablet Delayed Release 1 tablet Orally Once a day , Taking Levothyroxine Sodium 75 MCG Tablet 1 tab(s) orally once a day , Taking Hydrocortisone 10 MG Tablet 1.5 tab(s)qAM, 1 tab qPM orally 2 times a day , Taking metFORMIN HCl 850 MG Tablet TAKE 1 TABLET BY MOUTH TWICE DAILY , Taking FeroSul 325 (65 Fe) MG Tablet TAKE 1 TABLET BY MOUTH TWICE DAILY , Taking amLODIPine Besylate 5 MG Tablet 1 tablet Orally Once a day , Taking Rosuvastatin Calcium 10 MG Tablet 1 tablet Orally Once a day , Medication List reviewed and reconciled with the patient * Allergies: D ilaudid: hard to wake up after surgery. Objective: * Vitals: W t:161, Temp:98.1, BP:126/64, HR:82, Nurse:DOYLE, Ht: 63.50, BMI:28.07. * Examination: C ardiology: General Appearance: p leasant, NAD. . H EENT:?External canals with minimal wax. C arotid upstroke: n ormal, no bruits. H eart sounds: R RR, normal S1, S2. M urmur, click , gallop: n one. L ungs: c lear, no rales or wheezes. E xtremities: n o leg edema. Assessment: * Assessment: 1. T ype 2 diabetes mellitus without complication, without long-term current use of insulin - E11.9 (Primary) 2 . H yperlipidemia associated with type 2 diabetes mellitus - E11.69 3 . E ncounter for immunization - Z23 4 . D yslipidemia - E78.5 5 . H TN (hypertension) - I10 6 . A cquired hypothyroidism - E03.9 Plan: * Treatment: 2. D yslipidemia Continue Rosuvastatin Calcium Tablet, 10 MG, 1 tablet, Orally, Once a day. 3. H TN (hypertension) Continue amLODIPine Besylate Tablet, 5 MG, 1 tablet, Orally, Once a day. 4. A cquired hypothyroidism Continue Levothyroxine Sodium Tablet, 75 MCG, 1 tab(s), orally, once a day. * Immunizations: Prevnar (PCV20) : 0.5 mL (Route: Intramuscular) given by Marisol Purcell on Right Deltoid (Encounter for immunization) * Procedure Codes: G 2211 Complex e/m visit add on, 3044F HG A1C LEVEL LT 7.0% * Follow Up: 6 Months * Images: Billing Information: * Visit Code: 38831 Office Visit, Est Pt., Level 4. * Procedure Codes: G2211 Complex e/m visit add on. 3044F HG A1C LEVEL LT 7.0%. * Electronic signature of Helga Basurto MD on 04/17/2025 at 12:31 PM EDT Sign off status: Pending * Provider: Helga Basurto M.D. Date: 1 Generated for Sheila martínez/Jackson/Poolitting on: 0 04/17/2025 12:31 PM EDT History and Physical Notes * Examination Category Sub-Category Detail Notes Category Not es Cardiology Lungs: clear, no rales or wheezes HEENT: External canals with minimal wax Heart sounds: RRR, normal S1, S2 Carotid upstroke: normal, no bruits Extremities: no leg edema Murmur, click , gallop: none General Appearance: pleasant, NAD.
--- OUTSIDE RECORDS SUMMARY | 2025-01-31 05:00 | XMS_ITS ---
Author Organization [facility] Address [address] [facility] [address] [place] [id number] Care Team Providers Care Card Services Specialist Name Role Phone Helga Basurto Primary Care Provider [phone] Results Component Value Reference Range Notes P-Comprehensive Metabolic Pa blake (CMP) Reviewed date:2025 01:53:09 PM Interpretation: Performing Lab: Notes/Report: Test performed by [facility] [address] [place] [address] , [address], [place] [address] Jai Sanford MD, Oncologist CLIA: [id number] Sodium 142 135-145 mmol/L Potassium 4.4 3.5-5.3 mmol/L Chloride 104 97-108 mmol/L CO2 25 22-32 mmol/L Glucose 89 65-99 mg/dL BUN 20 8-23 mg/dL Creatinine 1.24 0.50-1.00 mg/dL Calcium 10.0 8.6-10.4 mg/dL eGFR by Creatinine 47 >59 mL/min/1.73m2 Protein 6.2 6.0-8.3 g/dL Albumin 4.3 3.5-5.3 g/dL Alkaline Phosphatase 59 35-121 IU/L ALT (SGPT) 17 <5-47 IU/L AST (SGOT) 31 <5-40 IU/L Bilirubin, Total 0.8 <0.2-1.2 mg/dL A/G Ratio 2.3 1.1-2.5 P-Hemoglobin A1C Reviewed date:2025 01:53:09 PM Interpretation: Performing Lab: Notes/Report: Test performed by [facility] [address] [place] [address] , [place] [address] Jai Sanford MD, Oncologist CLIA: [id number] Hemoglobin A1C 5.6 <5.7 % The following HbA1c ranges recommended by the [employer] (ADA) may be used as an aid in the diagnosis of diabetes mellitus. HbA1c Suggested Diagnosis >=6.5% Diabetic 5.7% - 6.4% Pre-Diabetic <5.7% Non-Diabetic P-Lipid Panel Reviewed date:2025 01:53:09 PM Interpretation: Performing Lab: Notes/Report: Test performed by [facility] [address] [place] [address] [facility], [place] [address] Jai Sanford MD, Oncologist CLIA: [id number] Cholesterol 112 <200 mg/dL Triglycerides 107 <150 mg/dL HDL Cholesterol 46 >39 mg/dL Cholesterol / HDL Ratio 2.43 0.00-4.44 Ratio Non-HDL Cholesterol 66 <130 mg/dL LDL Cholesterol (Calculation) 45 <130 mg/dL LDL Cholesterol Levels* Less than 100 mg/dL Optimal 100 to 129 mg/dL Near Optimal/ Above Optimal 130 to 159 mg/dL Borderline High 160 to 189 mg/dL High 190 mg/dL and above Very High * Categories as recommended by the 2004 ATPIII guidelines LDL/HDL Ratio 1.0 <3.3 Ratio LDL Cholesterol Patient History Test Date: 02/05/2024 LDL Results: 42 Units: mg/dL % Change: -62% Test Date: 08/05/2024 LDL Results: 39 Units: mg/dL % Change: -7% Test Date: 01/31/2025 LDL Results: 45 Units: mg/dL % Change: +15% P-TSH Reviewed date:2025 01:53:09 PM Interpretation: Performing Lab: Notes/Report: Test performed by [facility] [address] [place] [address] , [address] , [place] [address] Jai Sanford MD, Oncologist CLIA: [id number] TSH 1.87 0.43-5.25 mU/L P-Microalbumin/Creatinine, R andom Urine Sample Reviewed date:2025 01:53:09 PM Interpretation: Performing Lab: Notes/Report: Test performed by [facility] [address] [place] [address] , [address], [place] [address] Jai Sanford MD, Oncologist CLIA: [id number] Albumin/Creatinine Ratio, Urine 8 0-30 ug/m g Microalbumin, Urine, Random 0.6 Creatinine, Urine 74.3 Estimated Average Glucose Reviewed date:2025 01:53:09 PM Interpretation: Performing Lab: Notes/Report: Test performed by [facility] [address] [place] [address] , [address], [place] [address] Jai Sanford MD, Oncologist CLIA: [id number] Estimated Average Glucose (eAG) 114 Estimated Average Glucose (eAG) is calculated using the equation eAG = (28.7 x HbA1c) - 46.7 based on the guidelines established by the ADA. If the patient has certain diseases including kidney disease, sickle cell anemia, thalassemia, or is taking medications such as dapsone, erythropoietin, or iron, eAG should not be evaluated. REASON FOR VISIT blood work Medications Medication SIG (Take, Route, Frequency, Duration) Notes Start Date End Date Status Estradiol 1 MG 1 tab(s) orally once a day; Duration: 30 day(s) Active Metamucil Fiber - as directed Orally Active medroxyPROGESTERone Acetate 2.5 MG 1 tab(s) orally once a day; Duration: 28 day(s) Active amLODIPine Besylate 5 MG TAKE 1 TABLET B Y MOUTH DAILY; Duration: 30 Active FeroSul 325 (65 Fe) MG TAKE 1 TABLET BY MOUTH TWICE DAILY; Duration: 30 Active Pantoprazole Sodium 20 MG 1 tablet Orall y Once a day Active Levothyroxine Sodium 75 MCG 1 tab(s) ora lly once a day Active Rosuvastatin Calcium 10 MG 1 tablet Oral ly Once a day Active Hydrocortisone 10 MG 1.5 tab(s)qAM, 1 ta b qPM orally 2 times a day Active metFORMIN HCl 850 MG take 1 tablet by mouth twice daily Active Encounters Encounter Location Date Provider Diagnosis [facility] [address] [facility] [address] [facility] [address] [place], [place] [id number] 01/31/2025 Helga Basurto Dyslipidemia E78.5 ; HTN (hypertension) I10 ; Acquired hypothyroidism E03.9 and Type 2 diabetes mellitus without complication, without long-term current use of insulin E11.9 Assessments Encounter Date Diagnosis (ICD Code) Assessment Notes Treatment Notes Treatment Clinical Notes Section Notes 01/31/2025 Dyslipidemia (ICD-10 - E78.5) 01/31/2025 HTN (hypertension) (ICD-10 - I10) 01/31/2025 Acquired hypothyroidism (ICD-10 - E03.9) 01/31/2025 Type 2 diabetes mellitus without complication, without long-term current use of insulin (ICD-10 - E11.9) Plan Of Treatment Next Appt Details Provider Name:Helga Bliss, 08/07/2025 09:15:00 AM, [address], [address], [place], [place], [id number], Progress Notes * LUIS WHELANDOB:[birth year] (70 yo F)Acc No.[id number]:01/31/2025 Patient: LUIS BURNETTE Provider: Helga Basurto M.D. :1955 A ge:69 Y S ex:Female Date:01/31/2025 Address:[address] [place], [place] [id number] Subjective: * Chief Complaints: * 1 . Blood work. * Medical History: * Medications: T aking Metamucil Fiber - Tablet Chewable as directed Orally , Taking medroxyPROGESTERone Acetate 2.5 MG Tablet 1 tab(s) orally once a day , Taking Estradiol 1 MG Tablet 1 tab(s) orally once a day , Taking Pantoprazole Sodium 20 MG Tablet Delayed Release 1 tablet Orally Once a day , Taking Hydrocortisone 10 MG Tablet 1.5 tab(s)qAM, 1 tab qPM orally 2 times a day , Taking metFORMIN HCl 850 MG Tablet take 1 tablet by mouth twice daily , Taking Levothyroxine Sodium 75 MCG Tablet 1 tab(s) orally once a day , Taking Rosuvastatin Calcium 10 MG Tablet 1 tablet Orally Once a day , Taking amLODIPine Besylate 5 MG Tablet TAKE 1 TABLET BY MOUTH DAILY , Taking FeroSul 325 (65 Fe) MG Tablet TAKE 1 TABLET BY MOUTH TWICE DAILY , Medication List reviewed and reconciled with the patient Objective: * Vitals: Assessment: * Assessment: 1. D yslipidemia - E78.5 (Primary) 2 . H TN (hypertension) - I10 3 . A cquired hypothyroidism - E03.9 4 . T ype 2 diabetes mellitus without complication, without long-term current use of insulin - E11.9 Plan: * Treatment: Value Reference Range C holesterol / HDL Ratio 2.43 0.00-4.44 - Ratio * C holesterol 112 <200 - mg/dL * H DL Cholesterol 46 >39 - mg/dL * L DL Cholesterol (Calculation) 45 <130 - mg/d L * L DL/HDL Ratio 1.0 <3.3 - Ratio * N on-HDL Cholesterol 66 <130 - mg/dL * T riglycerides 107 <150 - mg/dL * Helga Basurto 2025 1 :52:56 PM >discussed with patient during office visit 2.?HTN (hypertension)?LAB: P-Comprehensive Metabolic Panel (CMP) (Collection Date & Time - 01/31/2025 08:24 AM)* Value Reference Range A /G Ratio 2.3 1.1-2.5 - * A lbumin 4.3 3.5-5.3 - g/dL * A lkaline Phosphatase 59 35-121 - IU/L * A LT (SGPT) 17 <5-47 - IU/L * A ST (SGOT) 31 <5-40 - IU/L * B ilirubin, Total 0.8 <0.2-1.2 - mg/dL * B UN 20 8-23 - mg/dL * C alcium 10.0 8.6-10.4 - mg/dL * C hloride 104 97-108 - mmol/L * C O2 25 22-32 - mmol/L * C reatinine 1.24 H 0.50-1.00 - mg/dL * G lucose 89 65-99 - mg/dL * P otassium 4.4 3.5-5.3 - mmol/L * S odium 142 135-145 - mmol/L * P rotein 6.2 6.0-8.3 - g/dL * e GFR by Creatinine 47 L >59 - mL/min/1.73m2 * Helga Basurto 2025 1 :52:56 PM >discussed with patient during office visit 3.?Acquired hypothyroidism?LAB: P-TSH (Collection Date & Time - 01/31/2025 08:24 AM)* Value Reference Range T SH 1.87 0.43-5.25 - mU/L * Helga Basurto 2025 1 :52:56 PM >discussed with patient during office visit 4.?Type 2 diabetes mellitus without complication, without long-term current use of insulin?LAB: P-Hemoglobin A1C (Collection Date & Time - 01/31/2025 08:24 AM)* Value Reference Range H emoglobin A1C 5.6 <5.7 - % * Helga Basurto 2025 1 :52:56 PM >discussed with patient during office visit ?LAB: P-Microalbumin/Creatinine, Random Urine Sample (Collection Date & Time - 01/31/2025 08:24 AM)* Value Reference Range A lbumin/Creatinine Ratio, Urine 8 0-30 - ug /mg * C reatinine, Urine 74.3 - mg/dL * M icroalbumin, Urine, Random 0.6 - mg/dL * Helga Basurto 2025 1 :52:56 PM >discussed with patient during office visit * Labs: * L ab: Estimated Average Glucose (Collection Date & Time - 01/31/2025 08:24 AM) Value Reference Range E stimated Average Glucose 114 - mg/dL * [facility], IT support 02/01/2025 04:30:27 : This order was created by the Interface. Helga Basurto 2025 1:52:56 PM >discussed with patient during office visit * Procedure Codes: 3 044F HG A1C LEVEL LT 7.0% * Images: Billing Information: * Visit Code: * Procedure Codes: 3044F HG A1C LEVEL LT 7.0%. * Electronic signature of Helga Basurto MD on 04/17/2025 at 12:32 PM EDT Sign off status: Pending * Provider: Helga Basurto M.D. Date: 0 01/31/2025 Generated for Sheila ng/Fanicholg/eTransmitting on: 0 04/17/2025 12:32 PM EDT
--- OUTSIDE RECORDS SUMMARY | 2025-02-06 05:00 | XMS_ITS ---
[facility] Address [address] [place] [id number] Care Team Providers Care Inflatable Buildings Laminator Name Role Phone Helga Basurto Primary Care Provider Allergies Allergen (clinical drug ingredient) Drug/Non Drug Allergy documented on EMR Reaction Allergy Type Onset Date Status hydromorphone Dilaudid hard to wake up after surgery Drug Allergy Active REASON FOR VISIT 6 month check and AWV, due for diabetic eye exam Medications Medication SIG (Take, Route, Frequency, Duration) Notes Start Date End Date Status Hydrocortisone 10 MG 1.5 tab(s) orally 2 times a day Active Pantoprazole Sodium 20 MG 1 tablet Orall y Once a day; Duration: 90 days Active Rosuvastatin Calcium 10 MG 1 tablet Oral ly Once a day Active metFORMIN HCl 850 MG take 1 tablet by mouth twice daily Active FeroSul 325 (65 Fe) MG TAKE 1 TABLET BY MOUTH TWICE DAILY; Duration: 30 Active Levothyroxine Sodium 75 MCG 1 tab(s) ora lly once a day Active Estradiol 1 MG 1 tab(s) orally once a day; Duration: 30 day(s) Active medroxyPROGESTERone Acetate 2.5 MG 1 tab(s) orally once a day; Duration: 28 day(s) Active amLODIPine Besylate 5 MG 1 tablet Orally Once a day Active amLODIPine Besylate 5 MG TAKE 1 TABLET B Y MOUTH DAILY; Duration: 30 Active Metamucil Fiber - as directed Orally Active Vital Signs Blood pressure systolic 118 mm Hg 02/07/20 25 Blood pressure diastolic 70 mm Hg 025 Heart Rate 60 /min 2025 Height 63.50 in 2025 Weight 157.8 lbs 2025 BMI 27.51 kg/m2 2025 Encounters Encounter Location Date Provider Diagnosis [facility] [address] [place] [id number] 2025 Helga Basurto Adult general medica l examination Z00.00 ; Hyperlipidemia associated with type 2 diabetes mellitus E11.69 ; Type 2 diabetes mellitus without complication, without long-term current use of insulin E11.9 ; Dyslipidemia E78.5 ; HTN (hypertension) I10 ; Acquired hypothyroidism E03.9 ; Encounter for immunization Z23 ; Adrenal insufficiency E27.40 ; Renal insufficiency N28.9 ; Metastatic melanoma C79.9 and BMI 27.0-27.9,adult Z68.27 Assessments Encounter Date Diagnosis (ICD Code) Assessment Notes Treatment Notes Treatment Clinical Notes Section Notes 2025 Adult general medical examination (ICD-10 - Z00.00) Patient instructed to return to office Annually for Annual Wellness Visits to include annual screenings of Pain assessment, Functional Ability assessment, Cognitive Ability assessment, Fall Risk assessment, Depression screening and Bladder control screening. 2025 Hyperlipidemia associated with type 2 diabetes mellitus (ICD-10 - E11.69) 2025 Type 2 diabetes mellitus without complication, without long-term current use of insulin (ICD-10 - E11.9) 2025 Dyslipidemia (ICD-10 - E78.5) 2025 HTN (hypertension) (ICD-10 - I10) 2025 Acquired hypothyroidism (ICD-10 - E03.9) 2025 Encounter for immunization (ICD-10 - Z23) 2025 Adrenal insufficiency (ICD-10 - E27.40) Continue f/u with [facility] 2025 Renal insufficiency (ICD-10 - N28.9) Increase fluid intake 2025 Metastatic melanoma (ICD-10 - C79.9) 2025 BMI 27.0-27.9,adult (ICD-10 - Z68.27) Plan Of Treatment Medication Medication Name Sig Start Date Stop Date Notes Hydrocortisone 10 MG 1.5 tab(s) orally 2 times a day Rosuvastatin Calcium 10 MG 1 tablet Orally Once a day metFORMIN HCl 850 MG take 1 tablet by [facility] twice daily Levothyroxine Sodium 75 MCG 1 tab(s) orally once a day amLODIPine Besylate 5 MG 1 tablet Orally Once a day Treatment Notes Assessment Notes Adult general medical examination Patien t instructed to return to office Annually for Annual Wellness Visits to include annual screenings of Pain assessment, Functional Ability assessment, Cognitive Ability assessment, Fall Risk assessment, Depression screening and Bladder control screening. Adrenal insufficiency Continue f/u with [facility] Renal insufficiency Increase fluid intak e Pending Test Test Name Order Date Bone density 2025 Next Appt Details Follow Up: 6 Months, Reason: Provider Name:Helga Bliss, 08/07/2025 09:15:00 AM, [address], [place], [phone], Progress Notes * LUIS WHELANDOB:[birth year] (70 yo F)Acc No.[id number] Annual Wellness Visit Patient: LUIS BURNETTE Provider: Helga Basurto M.D. :1955 A ge:70 Y S ex:Female Date:2025 Address:[address] [place] [address] [place], [id number] Subjective: * Chief Complaints: * 1 . 6 month check and AWV. 2. Due for diabetic eye exam. * HPI: H PI: Patient is here today for a scheduled 6 month c heck up and a Medicare Annual Wellness Visit. See labs drawn by [facility] on 01/31/2025 resulted in patient chart. Pt sts she has no concerns at this time. E ndocrinology: She has been compliant with diet and her weight has been stable. Endo has been slowly weaning her hydrocortisone. D ermatology: She continues to follow with the [facility] cancer center regarding her melanoma. No new concerns. * ROS: O PTHALMOLOGY: Negative for d juanies vision issues. * Medical History: M elanoma/ scalp/ - dx. 2013 , Melanoma - metastatic to brain - [facility] - Oct 15, 2018 - Dr. Seymour Li, s/p immunotherapy 2018 to 2021, Type 2 diabetes, Hypothyroidism, Adrenal insufficiency -follows with Endo, COVID 09/2022, Hiatal hernia by EGD\ . * Surgical History: T onsillectomy , Cholecystectomy with Appendectomy , BTL , Colonoscopy - normal x 2 , Howard - T-Ureña injections - Melanoma treatments 12/22/2015 (every two weeks), Colonoscopy and Endoscopy 02/05/2016, [facility]-Dr Carpio 01/2017, Craniotomy for resection of melanoma met- [facility] ) 11/06/2018, GammaKnife Radiation x5 - metastatic melanoma 12/11/2018, Colonoscopy/ Dr. Velazquez/ polyp x 2 02/02/2019, Colonoscopy/ [facility]/ normal 12/31/2020. * Hospitalization/Major Diagno stic Procedure: c anselmo , Back Pain- [facility] 10/23/2013, [place] [facility] 05/2016, MRI- [facility] 10/15-, Brain Surgery- [facility] 11/10-. * Family History: F ather: , stroke. [...] , Taking Hydrocortisone 10 MG Tablet 1.5 tab(s) orally 2 times a day , Taking [...] TABLET BY MOUTH TWICE DAILY , Taking Pantoprazole Sodium 20 MG Tablet Delayed Release 1 tablet Orally Once a day , Medication List reviewed and reconciled with the patient * Allergies: D ilaudid: hard to wake up after surgery. Objective: * Vitals: W t: 157.8, Temp: 98.6, BP: 118/70, HR: 60, Nurse: mmh, Ht: 63.50, BMI:27.51. * Examination: C ardiology: General Appearance: p leasant, NAD. . H EENT:?External canals with minimal wax. C arotid upstroke: n ormal, no bruits. H eart sounds: R RR, normal S1, S2. M urmur, click , gallop: n one. L ungs: c lear, no rales or wheezes. E xtremities: n o leg edema. * Physical Examination: G ENERAL: Pain Assessment: P ain level: 0, on a scale of 0-10 (with 10 being extreme pain). F unctional Status Assessment: P atient response to question of how often physical health interferes with daily activities: . Almost never Able to perform ADLs-including meal preparation, grocery shopping, housework, laundry, taking medications or handling finances. Cognitive Status: alert and oriented. Ambulation Status: Fully ambulatory . F all Risk Assessment: I ndependant in ambulation, adequate lighting in home. Patient has NOT fallen or had trouble walking within the past 12 months. D epression Screening: D gale depressed mood or anxiety. Describes emotional health as: calm. B ladder Control Screening: D gale problems. Assessment: * Assessment: 1. A dult general medical examination - Z00.00 (Primary) 2 . H yperlipidemia associated with type 2 diabetes mellitus - E11.69 3 . T ype 2 diabetes mellitus without complication, without long-term current use of insulin - E11.9 4 . D yslipidemia - E78.5 5 . H TN (hypertension) - I10 6 . A cquired hypothyroidism - E03.9 7 . E ncounter for immunization - Z23 8 . A drenal insufficiency - E27.40 9 . R enal insufficiency - N28.9 & #160; 1 0. M etastatic melanoma - C79.9 1 1. B [place] 27.0-27.9,adult - Z68.27 Plan: * Treatment: 2. T ype 2 diabetes mellitus without complication, without long-term current use of insulin Continue metFORMIN HCl Tablet, 850 MG, take 1 tablet by mouth twice daily. 3. D yslipidemia Continue Rosuvastatin Calcium Tablet, 10 MG, 1 tablet, Orally, Once a day. 4. H TN (hypertension) Continue amLODIPine Besylate Tablet, 5 MG, 1 tablet, Orally, Once a day. 5. A cquired hypothyroidism Continue Levothyroxine Sodium Tablet, 75 MCG, 1 tab(s), orally, once a day. 6. A drenal insufficiency Continue Hydrocortisone Tablet, 10 MG, 1.5 tab(s), orally, 2 times a day. Notes: Continue f/u with [facility] 7. R enal insufficiency Notes: Increase fluid intake * Imaging: * I maging: Bone density p erfomed in [place] this year * Procedure Codes: G 0439 ANNUAL WELLNESS VST; PPS SUBSQT VST, G2211 Complex e/m visit add on, G0444 ANNUAL DEPRESSION SCREENING 15 MIN, 1090F PRES/ABSN URINE INCON ASSESS, 3288F FALL RISK ASSESSMENT DOCD, 1170F FXNL STATUS ASSESSED, 1126F AMNT PAIN NOTED NONE PRSNT, 1159F MED LIST DOCD IN RCRD, 1003F LEVEL OF ACTIVITY ASSESS, 1036F TOBACCO NON- USER, 3017F COLORECTAL CA SCREEN DOC REV, 4040F PNEUMOC IMM ORDER/ADMIN, G8510 NEG SCR Depression PT NOT ELIG F/U/PLN DOC, 3044F HG A1C LEVEL LT 7.0%, G8752 MOST RECENT SYSTOLIC BP < 140MM HG, G8754 MOST RECENT DIASTOLIC BP < 90MM HG * Preventive Medicine: Counseling: E motional health: D iscussed ways to improve socialization. B ladder control: M ethods of controlling or managing leakage of urine discussed. E xercise: Patient advised to start, increase or maintain level of exercise/physical activity. I njury prevention: F all prevention discussed. Discussed need for cane/walker. Potential trip hazards discussed. Immunizations: P neumococcal u p to date. I nfluenza u p to date. Screening / Special Tests: M ammogram R ecent history: 10/11/2024 probably benign, recommend 6 month f/u. C olonoscopy R ecent history: 12/31/2020, repeat 3-5 years, history of polyps and metastatic melanoma. B one mineral Density R ecent history: performed in [place] last week, results pending. D iabetic Retinal Eye Exam R ecent history:, recommended today. N ephrology History R ecent history: labs performed 01/31/2025. * Follow Up: 6 Months * Images: Billing Information: * Visit Code: 11669 Office Visit, Est Pt., Level 3. Modifiers: 25 * Procedure Codes: G0439 ANNUAL WELLNESS VST; PPS SUBSQT VST. G2211 Complex e/m visit add on. G0444 ANNUAL DEPRESSION SCREENING 15 MIN. 1090F PRES/ABSN URINE INCON ASSESS. 3288F FALL RISK ASSESSMENT DOCD. 1170F FXNL STATUS ASSESSED. 1126F AMNT PAIN NOTED NONE PRSNT. 1159F MED LIST DOCD IN RCRD. 1003F LEVEL OF ACTIVITY ASSESS. 1036F TOBACCO NON-USER. 3017F COLORECTAL CA SCREEN DOC REV. 4040F PNEUMOC IMM ORDER/ADMIN. G8510 NEG SCR Depression PT NOT ELIG F/U/PLN DOC. 3044F HG A1C LEVEL LT 7.0%. G8752 MOST RECENT SYSTOLIC BP < 140MM HG. G8754 MOST RECENT DIASTOLIC BP < 90MM HG. * Electronic signature of Helga Basurto MD on 04/17/2025 at 12:32 PM EDT Sign off status: Pending * Provider: Helga Basurto M.D. Date: 0 2025 Generated for Sheila martínez/Jackson/Poolitting on: 0 04/17/2025 12:32 PM EDT History and Physical Notes * HPI (History of Present Illness) Category Sub-Category Detail Notes Category Not es HPI [facility] Medicare Annual Wellness Visit. See labs drawn by [facility] on 01/31/2025 resulted in patient chart. Pt sts she has no concerns at this time Physical Examination Category Sub-Category Detail Notes Section Note s GENERAL Pain Assessment: Pain level: 0, on a scale of 0-10 (with 10 being extreme pain) Functional Status Assessment: Patient response to question of how often physical health interferes with daily activities: . Almost never Able to perform ADLs-including meal preparation, grocery shopping, housework, laundry, taking medications or handling finances. Cognitive Status: alert and oriented. Ambulation Status: Fully ambulatory Fall Risk Assessment: Independant in amb ulation, adequate lighting in home. Patient has NOT fallen or had trouble walking within the past 12 months Depression Screening: Denies depressed m ood or anxiety. Describes emotional health as: calm Bladder Control Screening: Denies proble ms Examination Category Sub-Category Detail Notes Category Not es Cardiology Lungs: clear, no rales or wheezes HEENT: External canals with minimal wax Heart sounds: RRR, normal S1, S2 Carotid upstroke: normal, no bruits Extremities: no leg edema Murmur, click , gallop: none General Appearance: pleasant, NAD.
--- OUTSIDE RECORDS SUMMARY | 2025-04-17 12:32 | XMS_ITS | Encounter Summary ---
Author Organization [facility] Address [address] [place] [address] Care Team Providers Care Shop Manager Name Role Phone Piero Basurto MD Primary Care Provider + [phone] Mason Varela MD Unavailable [phone] Seymour Li MD Unavailable Piero Basurto MD Unavailable [phone] Kinga Mendez MBBS Unavailable [phone] Eric Leon MBBS Unavailable [phone] Encounter Details Date Type Department Care Team (Late st Contact Info) Description 06/26/2024 Lab Requisition [facility] Lab [address] [place] [address] Social History Tobacco Use Types Packs/Day Years Used Date Smoking Tobacco: Never Passive Smoke Exposure: Past Smokeless Tobacco: Never Comments:None Alcohol Use Standard Drinks/Week Comments Never 0 (1 standard drink = 0.6 oz pur e alcohol) PHQ-2 Answer Date Recorded Patient Health Questionnaire-2 Score 0 03/27/2024 PHQ-2A Answer Date Recorded Patient Health Questionnaire-2 Score 0 06/19/2023 Comments No Sex and Gender Information Value Date Recorded Sex Assigned at Female 09/30/2021 9:30 PM EST Legal Sex Female 7:08 PM EDT Gender Identity Female 09/30/2021 9:30 PM EST Sexual Orientation Straight 09/30/2021 9: 30 PM EST documented as of this encounter Plan of Treatment Upcoming Encounters Date Type Department Care Team (Late st Contact Info) Description 05/07/2025 8:15 AM EDT Appointment [facility] [address] [facility], [place] [address] 05/07/2025 9:15 AM EDT Appointment [facility] [address] [facility], [place] [phone] 05/07/2025 11:00 AM EDT Appointment [facility] [address] [place] [phone] 05/08/2025 10:20 AM EDT Office Visit [facility] Multidisciplinary Oncology Clinic [address] [place] [phone] Cristo Ybarra MD [address] [place] [address] 06/13/2025 9:00 AM EDT Office Visit [facility] Endocrinology [address] [place] [phone] (2), Artie Doshi Fellow 09/10/2025 11:00 AM EST Office Visit [facility] [address] [facility] [place] [address] Clay Stanton MD [address] [address] 10/08/2025 10:30 AM EST Ancillary Procedure [facility] Gynecology [address] [place] [address] 10/08/2025 11:00 AM EST Office Visit [facility] Gynecology [address] [place] [address] Lydia Calvert, LINDA [address] [facility] [address] [facility] [address] [place] [address] documented as of this encounter Visit Diagnoses Not on filedocumented in this encounter Additional Health Concerns Assessment Noted Time A fall risk assessment has been complete d for the patient 06/20/2024 8:41 AM EDT A Body Mass Index follow-up plan has been documented for the patient 06/07/2024 3:02 PM EDT documented as of this encounter Care Teams Shop Manager Relationship Specialty Start Date End Date Piero Basurto MD [address] [place] [address] PCP - General 03/05/21 Mason Varela MD [address] [facility] [address] [place] [phone] Surgeon Neurosurgery 07/08/21 Seymour Li MD [address] [facility] [address] [place] [phone] Consulting Physician Medical Oncology 08/11/21 Piero Basurto MD [address] [place] [address] Referring Physician 09/20/21 Kinga Mendez MBBS [address] [place], [place] [phone] Fellow Hematology and Oncology 02/15/24 Eric Leon MBBS [address] [place], [place] [phone] Fellow Hematology and Oncology 07/24/24 documented as of this encounter
--- OUTSIDE RECORDS SUMMARY | 2025-04-17 12:32 | XMS_ITS | Encounter Summary ---
Author Organization [facility] Address [address] [place] [address] Care Team Providers Care Wine Pasteurizer Name Role Phone Piero Basurto MD Primary Care Provider + [phone] Mason Varela MD Unavailable [phone] Seymour Li MD Unavailable Piero Basurto MD Unavailable [phone] Kinga Mendez MBBS Unavailable [phone] Eric Leon MBBS Unavailable [phone] Reason for Visit * Reason Comments Med Refill Encounter Details Date Type Department Care Team (Late st Contact Info) Description 04/13/20[facility] [address] [place] [address] Artie Doshi MD [address] [place] [address] Hypothyroidism, unspecified type Social History Tobacco Use Types Packs/Day Years Used Date Smoking Tobacco: Never Smokeless Tobacco: Never Comments:None Alcohol Use Standard Drinks/Week Comments Never 0 (1 standard drink = 0.6 oz pur e alcohol) PHQ-2 Answer Date Recorded Patient Health Questionnaire-2 Score 0 03/31/2022 Comments No Sex and Gender Information Value Date Recorded Sex Assigned at Female 09/30/2021 9:30 PM EST Legal Sex Female 7:08 PM EDT Gender Identity Female 09/30/2021 9:30 PM EST Sexual Orientation Straight 09/30/2021 9: 30 PM EST documented as of this encounter Miscellaneous Notes * Telephone Encounter - Teresa Bairdmanuel Saini - 04/13/2023 4:29 PM EDT Per protocol, 1 medication(s), levothyroxine, has been approved for 30 day supply with 1 refill(s) to [facility] pharmacy. documented in this encounter Plan of Treatment Upcoming Encounters Date Type Department Care Team ([facility] st Contact Info) Description 05/07/2025 8:15 AM EDT Appointment [facility] [address] [place] [address] 05/07/2025 9:15 AM EDT Appointment [facility] [address] [place] [address] 05/07/2025 11:00 AM EDT Appointment [facility] [address] [place] [address] 05/08/2025 10:20 AM EDT Office Visit [facility] Multidisciplinary Oncology Clinic [address] [place] [address] Cristo Ybarra MD [address] [place] [address] 06/13/2025 9:00 AM EDT Office Visit [facility] Endocrinology [address] [place] [phone] (2), Artie Doshi Fellow 09/10/2025 11:00 AM EST Office Visit [facility] Eye Care [address] [place] [address] Clay Stanton MD [address] [address] 10/08/2025 10:30 AM EST Ancillary Procedure [facility] Gynecology [address] [facility] [address] [place] [address] 10/08/2025 11:00 AM EST Office Visit [facility] Gynecology [address] [place] [address] Lydia Calvert S, [employer] SERVICE SUPERVISOR [address] [facility] [address] [place] [address] documented as of this encounter Visit Diagnoses Diagnosis Hypothyroidism, unspecified type documented in this encounter Additional Health Concerns Assessment Noted Time A fall risk assessment has been complete d for the patient 03/23/2023 10:52 AM EDT A Body Mass Index follow-up plan has been documented for the patient 12/16/2022 10:20 AM EST documented as of this encounter Care Teams Wine Pasteurizer Relationship Specialty Start Date End Date Piero Basurto MD [address] [facility] [address] [place] [address] PCP - General 03/05/21 Mason Varela MD [address] [facility] [address] [place] [address] Surgeon Neurosurgery 07/08/21 Seymour Li MD [address] [facility] [address] [place] [address] Consulting Physician Medical Oncology 08/11/21 Piero Basurto MD [address] [place] [address] Referring Physician 09/20/21 Kinga Mendez MBBS [address] [place] [address] Fellow Hematology and Oncology 02/15/24 Eric Leon MBBS [address] [place] [address] Fellow Hematology and Oncology 07/24/24 documented as of this encounter
--- OUTSIDE RECORDS SUMMARY | 2025-04-17 12:32 | XMS_ITS | Patient Health Record ---
Author Organization [facility] Address [address] [facility] [address] SELINA Miramontes [id number] Care Team Providers Care Group Fitness Assistant Department Head Name Role Phone Helga Basurto Primary Care Provider [place] haw[place] Unavailable [phone] Allergies Allergen (clinical drug ingredient) Drug/Non Drug Allergy documented on EMR Reaction Allergy Type Onset Date Status Dilaudid hard to wake up after surgery Drug Allergy Active Results Component Value Reference Range Notes P-Comprehensive Metabolic Pa blake (CMP) Reviewed date:2025 01:53:09 PM Interpretation: Performing Lab: Notes/Report: Test performed by [employer], [employer] [address] [place] [address] , [address], [place] [address] Jai Sanford MD, Basketball Scout CLIA: [id number] Sodium 142 135-145 mmol/L Potassium 4.4 3.5-5.3 [...] Interpretation: Performing Lab: Notes/Report: Test performed by [facility] [address] [place], [place] [address] [place] [address], [place] [address] Jai Sanford MD, Basketball Scout CLIA: [id number] Hemoglobin A1C 5.6 <5.7 % The following HbA1c ranges recommended by the [place] [employer] (ADA) may be used as an aid in the diagnosis of diabetes mellitus. HbA1c Suggested Diagnosis >=6.5% Diabetic 5.7% - 6.4% Pre-Diabetic <5.7% Non-Diabetic P-Lipid Panel Reviewed date:2025 01:53:09 PM Interpretation: Performing Lab: Notes/Report: Test performed by [facility] [address] [place], [place] [address]ICS [facility] [place] [address], [place] [address] Jai Sanford MD, Basketball Scout CLIA: [id number] Cholesterol 112 <200 mg/dL Triglycerides 107 <150 [...] Interpretation: Performing Lab: Notes/Report: Test performed by [facility] [address] [place], [place] [address]ICS [facility] [place] , [address], [place] [address] Jai Sanford MD, Basketball Scout CLIA: [id number] TSH 1.87 0.43-5.25 mU/L P-Microalbumin/Creatinine, R andom Urine Sample Reviewed date:2025 01:53:09 PM Interpretation: Performing Lab: Notes/Report: Test performed by [facility] [address] [place], [place] [address]ICS [facility] [place] , [address], [place] [address] Jai Sanford MD, Basketball Scout CLIA: [id number] Albumin/Creatinine Ratio, Urine 8 0-30 ug/m g Microalbumin, Urine, Random 0.6 Creatinine, Urine 74.3 Estimated Average Glucose Reviewed date:2025 01:53:09 PM Interpretation: Performing Lab: Notes/Report: Test performed by [facility] [address] [place] [address] , [address], [place] [address] Jai Sanford MD, Basketball Scout CLIA: [id number] Estimated Average Glucose (eAG) 114 Estimated Average Glucose (eAG) is calculated using the equation eAG = (28.7 x HbA1c) - 46.7 based on the guidelines established by the ADA. If the patient has certain diseases including kidney disease, sickle cell anemia, thalassemia, or is taking medications such as dapsone, erythropoietin, or iron, eAG should not be evaluated. Mammogram, Bilateral Diagnos tic Reviewed date:10/29/2024 08:52:59 AM Interpretation:probably benign, recommend 6 month f/u Performing Lab: Notes/Report: probably benign, recommend 6 month f/u Glycohemoglobin A1c (in hous e) Reviewed date:08/08/2024 05:06:06 PM Interpretation:Normal Performing Lab: Notes/Report: Normal glycohemoglobin 5.9% 5 - 6.5 % P-Comprehensive Metabolic Pa blake (CMP) Reviewed date:08/08/2024 05:06:06 PM Interpretation:Cr 1.06, gfr 57 Performing Lab: Notes/Report: Test performed by [facility] [address] [place] [address] , [address], [place] [id number] Jai Sanford MD, Basketball Scout CLIA: [id number] Sodium 142 135-145 mmol/L Potassium 4.0 3.5-5.3 mmol/L Chloride 104 97-108 mmol/L CO2 26 22-32 mmol/L Glucose 88 65-99 mg/dL BUN 21 8-23 mg/dL Creatinine 1.06 0.50-1.00 mg/dL Calcium 9.7 8.6-10.4 mg/dL eGFR by Creatinine 57 >59 mL/min/1.73m2 Protein 6.1 6.0-8.3 g/dL Albumin 4.2 3.5-5.3 g/dL Alkaline Phosphatase 48 35-121 IU/L ALT (SGPT) 20 <5-47 IU/L AST (SGOT) 39 <5-40 IU/L Bilirubin, Total 0.6 <0.2-1.2 mg/dL A/G Ratio 2.2 1.1-2.5 P-Lipid Panel Reviewed date:08/08/2024 05:06:06 PM Interpretation:Normal Performing Lab: Notes/Report: Test performed by [employer], [employer] [facility] , [address], [place] [address] Jai Sanford MD, Basketball Scout CLIA: [id number] Cholesterol 112 <200 mg/dL Triglycerides 119 <150 mg/dL HDL Cholesterol 49 >39 mg/dL Cholesterol / HDL Ratio 2.29 0.00-4.44 Ratio Non-HDL Cholesterol 63 <130 mg/dL LDL Cholesterol (Calculation) 39 <130 mg/dL LDL Cholesterol Levels* Less than 100 mg/dL Optimal 100 to 129 mg/dL Near Optimal/ Above Optimal 130 to 159 mg/dL Borderline High 160 to 189 mg/dL High 190 mg/dL and above Very High * Categories as recommended by the 2004 ATPIII guidelines LDL/HDL Ratio 0.8 <3.3 Ratio LDL Cholesterol Patient History Test Date: 05/03/2023 LDL Results: 111 Units: mg/dL % Change: - Test Date: 02/05/2024 LDL Results: 42 Units: mg/dL % Change: -62% Test Date: 08/05/2024 LDL Results: 39 Units: mg/dL % Change: -7% P-TSH Reviewed date:08/08/2024 05:06:06 PM Interpretation:Normal Performing Lab: Notes/Report: Test performed by [employer], [address] , [place] [address] Jai Sanford MD, Basketball Scout CLIA: [id number] TSH 1.37 0.43-5.25 mU/L Reason For Referral No Information Medications Medication SIG (Take, Route, Frequency, Duration) Notes Start Date End Date Status FeroSul 325 (65 Fe) MG TAKE 1 TABLET BY MOUTH TWICE DAILY; Duration: 30 Active Levothyroxine Sodium 75 MCG 1 tab(s) ora lly once a day Active Hydrocortisone 10 MG 1.5 tab(s) orally 2 times a day Active metFORMIN HCl 850 MG 1 tablet with a page l Orally Twice a day; Duration: 90 days Active Estradiol 1 MG 1 tab(s) orally once a day; Duration: 30 day(s) Active Pantoprazole Sodium 20 MG 1 tablet Orall y Once a day; Duration: 90 days Active Rosuvastatin Calcium 10 MG 1 tablet Oral ly Once a day Active Metamucil Fiber - as directed Orally Active medroxyPROGESTERone Acetate 2.5 MG 1 tab(s) orally once a day; Duration: 28 day(s) Active amLODIPine Besylate 5 MG 1 tablet Orally Once a day Active amLODIPine Besylate 5 MG TAKE 1 TABLET B Y MOUTH DAILY; Duration: 30 Active Immunizations Vaccine Route Administration Date Status Comme nts xFluzone High Dose-private (65yr&older) Unknown 07/11/2024 Administered Tetanus Tdap-Adacel (over 7yrs) IM Intramuscular 04/01/2015 Administered Expecting grandbabies soon. Prevnar (PCV20) IM Intramuscular 08/08/2024 Administered Prevnar (PCV13) Unknown 07/25/2020 Administered PNEUMOVAX 23 VACCINE IM Intramuscular 07/27/2023 Administered Fluzone Quad (6months&older) IM Intramuscular 08/09/2019 Administered Fluzone High Dose (65yr and older) Unknown 09/04/2021 Administered Fluzone High Dose (65yr and older) IM Intramuscular 08/16/2022 Administered Fluzone High Dose (65yr and older) IM Intramuscular 07/27/2023 Administered COVID 19 Pfizer Unknown 12/16/2020 Administered COVID 19 Pfizer Unknown 01/12/2021 Administered COVID 19 Pfizer Unknown 08/04/2021 Administered Problems Problem Type SNOMED Code ICD Code Onset Dates Problem Status W/U Status Risk Notes Problem Hypertension (46209722) HTN (hypertension) (I10) Active confirmed Problem Abnormal mammogram (173274152) Abnormal mammogram (R92.8) Active confirmed Problem Body mass index 30+ - obesity (751225549) BMI 30.0-30.9,adult (Z68.30) Active confirmed Problem Overactive urinary bladder (disorder) (129320970) OAB (overactive bladder) (N32.81) Active confirmed Problem Hearing loss (35830312) Hearing loss (H91.90) Active confirmed Problem Primary insomnia (9148588) Primary insomnia (F51.01) Active confirmed Problem Hyperlipidemia due to type 2 diabetes mellitus (disorder) (189885415985778) Hyperlipidemia associated with type 2 diabetes mellitus (E11.69) Active confirmed Problem Adrenal insufficiency (953867501) Adrenal insufficiency (E27.40) Active confirmed Problem Acquired hypothyroidism (716529871) Acquired hypothyroidism (E03.9) Active confirmed Problem Iron deficiency anemia due to chronic blood loss (470607223) Iron deficiency anemia due to chronic blood loss (D50.0) Active confirmed Problem Chronic vaginitis (72169595) Chronic vaginitis (N76.1) Active confirmed Problem Insomnia (793367023) Insomnia, unspecified type (G47.00) Active confirmed Problem Dyslipidemia (507682089) Dyslipidemia (E78.5) Active confirmed Problem Type II diabetes mellitus without complication (715942138) Type 2 diabetes mellitus without complication, without long-term current use of insulin (E11.9) Active confirmed Problem Tinnitus (40099242) Tinnitus (H93.19) Active confirmed Problem Malignant melanoma of skin (12000119) Malignant melanoma, unspecified site (C43.9) Active confirmed Problem Metastatic malignant melanoma (disorder) (909331209) Metastatic melanoma (C79.9) Active confirmed Problem Screening mammography (43623381) Screening mammogram for breast cancer (Z12.31) Active confirmed Vital Signs Heart Rate 60 /min 2025 Blood pressure diastolic 70 mm Hg 2025 Height 63.50 in 2025 Blood pressure systolic 118 mm Hg 2025 Weight 157.8 lbs 2025 BMI 27.51 kg/m2 2025 Encounters Encounter Location Date Provider Diagnosis [facility] [address] [place] [address] [place] Miramontes [id number] 04/24/2024 Lon [place] Neck pain M54.2 [place] [address] [place] [id number] 08/05/2024 Tyree Basurto Type 2 diabetes wayne itus without complication, without long-term current use of insulin E11.9 ; Dyslipidemia E78.5 ; Acquired hypothyroidism E03.9 and HTN (hypertension) I10 [facility] [address] [place] [id number] 08/08/2024 Tyree Basurto Hyperlipidemia associated with type 2 diabetes mellitus E11.69 ; Type 2 diabetes mellitus without complication, without long-term current use of insulin E11.9 ; Encounter for immunization Z23 ; Dyslipidemia E78.5 ; HTN (hypertension) I10 and Acquired hypothyroidism E03.9 [facility] [address] [place] Miramontes [id number] 01/31/2025 Tyree Basurto Dyslipidemia E78.5 ; HTN (hypertension) I10 ; Acquired hypothyroidism E03.9 and Type 2 diabetes mellitus without complication, without long-term current use of insulin E11.9 [facility] [address] [place]ont[place] [id number] 2025 Tyree Basurto Adult general medica l examination Z00.00 ; Hyperlipidemia associated with type 2 diabetes mellitus E11.69 ; Type 2 diabetes mellitus without complication, without long-term current use of insulin E11.9 ; Dyslipidemia E78.5 ; HTN (hypertension) I10 ; Acquired hypothyroidism E03.9 ; Encounter for immunization Z23 ; Adrenal insufficiency E27.40 ; Renal insufficiency N28.9 ; Metastatic melanoma C79.9 and BMI 27.0-27.9,adult Z68.27 [facility] [address] [facility] [address] [facility] [address], [place] [id number] 10/29/2024 R Tyree Basurto [facility] [address] [facility] [address], [place] [id number] 01/30/2025 R Tyree [facility] [address] [facility] [facility] [address] [facility] [address], [place] [id number] 02/03/2025 R Tyree Basurto Hiatal hernia K44.9 Assessments Encounter Date Diagnosis (ICD Code) Assessment Notes Treatment Notes Treatment Clinical Notes Section Notes 04/24/2024 Neck pain (ICD-10 - M54.2) Home exercise program provided to patient, Call with any new symptoms 08/08/2024 Hyperlipidemia associated with type 2 diabetes mellitus (ICD-10 - E11.69) 08/08/2024 Type 2 diabetes mellitus without complication, without long-term current use of insulin (ICD-10 - E11.9) 01/31/2025 HTN (hypertension) (ICD-10 - I10) 01/31/2025 Dyslipidemia (ICD-10 - E78.5) 02/03/2025 Hiatal hernia (ICD-10 - K44.9) 2025 Hyperlipidemia associated with type 2 diabetes mellitus (ICD-10 - E11.69) 2025 Adult general medical examination (ICD-10 - Z00.00) Patient instructed to return to office Annually for Annual Wellness Visits to include annual screenings of Pain assessment, Functional Ability assessment, Cognitive Ability assessment, Fall Risk assessment, Depression screening and Bladder control screening. 2025 Type 2 diabetes mellitus without complication, without long-term current use of insulin (ICD-10 - E11.9) 01/31/2025 Acquired hypothyroidism (ICD-10 - E03.9) 08/05/2024 Type 2 diabetes mellitus without complication, without long-term current use of insulin (ICD-10 - E11.9) 08/08/2024 Encounter for immunization (ICD-10 - Z23) 08/05/2024 Dyslipidemia (ICD-10 - E78.5) 08/08/2024 Dyslipidemia (ICD-10 - E78.5) 01/31/2025 Type 2 diabetes mellitus without complication, without long-term current use of insulin (ICD-10 - E11.9) 2025 Dyslipidemia (ICD-10 - E78.5) 2025 HTN (hypertension) (ICD-10 - I10) 08/08/2024 HTN (hypertension) (ICD-10 - I10) 08/05/2024 Acquired hypothyroidism (ICD-10 - E03.9) 08/05/2024 HTN (hypertension) (ICD-10 - I10) 08/08/2024 Acquired hypothyroidism (ICD-10 - E03.9) 2025 Acquired hypothyroidism (ICD-10 - E03.9) 2025 Encounter for immunization (ICD-10 - Z23) 2025 Adrenal insufficiency (ICD-10 - E27.40) Continue f/u with [facility] 2025 Renal insufficiency (ICD-10 - N28.9) Increase fluid intake 2025 Metastatic melanoma (ICD-10 - C79.9) 2025 BMI 27.0-27.9,adult (ICD-10 - Z68.27) Plan Of Treatment Pending Test Test Name Order Date Bone density 2025 Mammogram, Bilateral Diagnostic 03/19/20 25 Next Appt Details Provider Name:Helga Bliss, 08/07/2025 09:15:00 AM, [address], [address], [place], [place], [id number], Insurance Providers Payer Name Payer Address Payer Phone Subscriber Number Group Number Insured Name Patient Relationship to Insured Coverage Start Date Coverage End Date MEDICARE PART B [address] [address] [place] Byrnes [address] [phone] [id number] LUIS WHELAN Self - patient is the insured [address] [id number] LUIS WHELAN Self - patient is the insured Medications Administered Medication Instructions Date of Administration Dosage Notes Dexamethasone 07/22/2009 1 mL Dexamethasone 03/30/2021 1 mL Medical (General) History Medical History History ICD Code Melanoma/ scalp/ - dx. 2014 Melanoma - metastatic to bra in - [facility] - Oct 15, 2018 - Dr. Seymour Li, s/p immunotherapy 2018 to 2021 type 2 diabetes Hypothyroidism Adrenal insufficiency -follows with [facility] COVID 09/2022 Hiatal hernia by EGD\ Surgical History Surgery Date(Month/Year) Tonsillectomy Cholecystectomy with Appendectomy BTL Colonoscopy - normal x 2 [facility] [place] injections - Melanom a treatments 12/22/2015 (every two weeks) Colonoscopy and Endoscopy 02/05/2016 [facility] Carpio 01/2017 Craniotomy for resection of melanoma met - [facility] ) 11/06/2018 GammaKnife Radiation x5 - metastatic amarjit anoma 12/11/2018 Colonoscopy/ Dr. Velazquez/ polyp x 2 019 Colonoscopy/ [facility]/ normal 12/31/2020 Hospitalization History Reason Date(Month/Year) Brain Surgery- [facility] 11/10- MRI- [facility] 10/15- [place] [facility] 05/2016 Back Pain- [facility] 10/23/2013 childbirth
--- OUTSIDE RECORDS SUMMARY | 2025-04-17 12:32 | XMS_ITS ---
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 Since her last visit, she had issues with adrenal insufficiency. She is currently on steroid therapy and also on Nivo maintenance therapy. She had a PET scan and MRI head in February 2020 showing no evidence of metastatic disease. She was treated with ipilimumab and nivolumab starting in March 2019 and has had complete metabolic resolution of PET positive areas of disease on scan in June 2019, including the adnexal mass. Most recent PET scan was in January 2021, no evidence of hypermetabolic metastatic disease. Ultrasound performed in the office today and shows normal ovaries. Recommend future ultrasounds as needed based on hypermetabolic activity on PET scans that are concerning for pelvic recurrence. Vasomotor symptoms due to menopause 04/01/2021 Assessment & Plan (04/01/2021 12:46 PM EDT): Symptoms controlled with estradiol and medroxyprogesterone. Patient will follow up in 6 months with Kierra for medication management and in one year with Kierra for annual exam. 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 Follow up at next visit. 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 Li. Malignant melanoma 10/30/2018 Overview (04/01/2021): 04/03/2014: Shave bx skin on scalp - Breslow thickness 0.70 mm; Bryan's level III; no ulceration identified; zero mitotic rate. Pathologic stage pT1a 05/19/2014: WLE LEFT scalp melanoma and LEFT neck SLNBX - Margins free of tumor and 0/1 lymph node negative for malignancy. 10/06/2014: Radical resection of recurrent melanoma on scalp - multiple recurrent satellite lesions around graft 11/25/14: PET/CT - No evidenced of neoplastic recurrence within the neck, chest, abdomen, or pelvis. 11/28/14: Resection melanoma on central scalp vertex - additional recurrent satellite melanoma 11-02-15 new in-transit lesions on scalp after imiquimod therapy (may have missed areas) consider T-VEC 316 4 lesions injected 7mm, 4mm, 3mm, 3mm one 1 mm not injected TVEC Last Assessment & Plan: Continue with surveillance. Q 3 month appointments with local oncologist. Scans at home. RTC 6 months. Assessment & Plan (04/01/2021 12:43 PM EDT): In remission. Managed by Dr. Li. DM2 (diabetes mellitus, type 2) 10/29/2018 Assessment & Plan (04/01/2021 12:44 PM EDT): Diabetes is unchanged. Continue current treatment regimen. Diabetes will be reassessed per PCP. Multiple lung nodules 12/27/2017 Melanoma of scalp 05/12/2016 Overview (07/08/2021): Images from the original note were not included. Current Treatment and Therapy Plans No current plan information found. Past Treatment and Therapy Plans Oncology Treatment Plan Name Start Date Discontinue Date Treatment Medications Discontinue Reason Plan Provider Cycles Nivolumab Every 28 Days 04/15/2021 11/25/2022 nivolumab (Opdivo) IVPB Therapy Complete Abdulaziz Lux MD 19 of 24 cycles started
--- OUTSIDE RECORDS SUMMARY | 2025-04-17 12:32 | XMS_ITS | Encounter Summary ---
Author Organization [facility] Address [address] [place] [address] Care Team Providers Care Yard Rigger Name Role Phone Piero Basurto MD Primary Care Provider + [phone] Msaon Varela MD Unavailable [phone] Seymour Li MD Unavailable Piero Basurto MD Unavailable [phone] Kinga Mendez Unavailable [phone] Eric Leon Unavailable [phone] Encounter Details Date Type Department Care Team (Late st Contact Info) Description 02/12/2025 Results Follow-Up [facility] End[facility]ology [address] [place] [phone] Louie Enrique MBBS [address] [place] [address] Social History Tobacco Use Types Packs/Day Years Used Date Smoking Tobacco: Never Passive Smoke Exposure: Past Smokeless Tobacco: Never Comments:None Alcohol Use Standard Drinks/Week Comments Never 0 (1 standard drink = 0.6 oz pur e alcohol) PHQ-2 Answer Date Recorded Patient Health Questionnaire-2 Score 0 11/07/2024 PHQ-2A Answer Date Recorded Patient Health Questionnaire-2 [...] AM EDT Appointment [facility] [address] [facility], [place] [phone] 05/07/2025 9:15 AM EDT Appointment [facility] [address] [facility], [place] [phone] 05/07/2025 11:00 AM EDT Appointment [facility] [address] [place] [phone] 05/08/2025 10:20 AM EDT Office Visit [facility] [address] [place] [address] Cristo Ybarra MD [address] [place], [place] [phone] 06/13/2025 9:00 AM EDT Office Visit [facility] [address] [place] [phone] (2), Artie Doshi Fellow 09/10/2025 11:00 AM EST Office Visit [facility] [address] [place] [address] Clay Stanton MD [address] [address] 10/08/2025 10:30 AM EST Ancillary Procedure [facility] [address] [facility] [address] [place] [address] 10/08/2025 11:00 AM EST Office Visit [facility] [address] [facility] [address] [place] [phone] Lydia Calvert S, SIDE GLUER [address] [facility] [address] [facility] [address] [place] [phone] documented as of this encounter Visit Diagnoses Not on filedocumented in this encounter Additional Health Concerns Assessment Noted Time A fall risk assessment has been complete d for the patient 11/07/2024 11:22 AM EST A Body Mass Index follow-up plan has been documented for the patient 12/13/2024 10:09 AM EST documented as of this encounter Care Teams Yard Rigger Relationship Specialty Start Date End Date Piero Basurto MD [address] [facility] [address] [facility] [address] [place] [address] PCP - General 03/05/21 Mason Varela MD [address] [facility] [address] [place] [phone] Surgeon Neurosurgery 07/08/21 Seymour Li MD [address] [facility] [address] [place] [address] Consulting Physician Medical Oncology 08/11/21 Piero Basurto MD [address] [facility] [address] [address] Referring Physician 09/20/21 Kinga Mendez MBBS [address] [place] [address] Fellow Hematology and Oncology 02/15/24 Eric Leon MBBS [address] [place] [id number] Fellow Hematology and Oncology 07/24/24 documented as of this encounter
--- OUTSIDE RECORDS SUMMARY | 2025-04-17 12:32 | XMS_ITS | Clinical Summary ---
Author Organization [facility] Address [address] [place] [address] Care Team Providers Care Pouch Making Machine Operator Name Role Phone Piero Basurto MD Primary Care Provider + [phone] Mason Varela MD Unavailable [phone] Seymour Li MD Unavailable Piero Basurto MD Unavailable [phone] Kinga Mendez MBBS Unavailable [phone] Eric Leon MBBS Unavailable [phone] Allergies Active Allergy Reactions Criticality Noted Date Comments Hydromorphone Other - please docum ent in the comment field Low 06/27/2023 Pt states she has been told previously to avoid using this medication, as she is intolerant and it becomes very difficult to awaken after being given it Medications Wound Dressings (Biafine) foam if needed. 0 Active Cetirizine HCl (ZyrTEC ALLERGY) 10 MG capsule Take 10 mg by mouth 1 (one) time each day. 1 Active ferrous sulfate 325 (65 Fe) MG tablet Take by mouth 1 (one) time each day. 1 Active metFORMIN (Glucophage) 850 MG tablet Take by mouth every 6 (six) hours. 1 Active Calcium Carbonate-Vit D-Min (Caltrate 600+D Plus Minerals) 600-800 MG-UNIT chewable tablet 1 Active amLODIPine (Norvasc) 5 MG tablet Take 1 tablet (5 mg) by mouth daily. Per PCP 2 Active valACYclovir (Valtrex) 1 g tablet Take 1 tablet (1,000 mg) by mouth. As needed 3 Active rosuvastatin (Crestor) 10 MG tablet Take 1 tablet (10 mg) by mouth daily. 3 Active NYSTATIN PO Take 10 mg by mouth every night. As needed Active estradiol (Estrace) 0.5 MG tablet TAKE 2 TABLETS(1 MG) BY MOUTH 1 TIME EACH DAY 180 tablet 2 4 Active fluorouracil (Efudex) 5 % cream APPLY TOPICALLY TO THE AFFECTED AREA TWICE DAILY FOR 14 DAYS 4 Active medroxyPROGESTER one (Provera) 2.5 MG tablet TAKE 1 TABLET(2.5 MG) BY MOUTH 1 TIME EACH DAY 30 tablet 3 4 Active hydrocortisone (Cortef) 10 MG tabletIndication s:Anterior pituitary hormone deficiency (CMS/HCC) TAKE 2 TABLETS IN THE MORNING AND INCREASE DOSE WITH STRESS / ILLNESS 250 tablet 3 5 Active levothyroxine (Synthroid, Levoxyl) 75 MCG tabletIndication s:Hypothyroidism , unspecified type Take 1 tablet (75 mcg) daily by mouth for 6 days a week 90 tablet 5 Active Active Problems Problem Noted Date Diagnosed Date [...] therapy (may have missed areas) consider T-VEC 12-22-15 4 lesions injected 7mm, 4mm, 3mm, 3mm [...] from the original note were not included. Encounters Date Type Department Care Team Description 03/07/2025 Refill [facility] Endocrinology [address] [place] [address] Artie Doshi MD Hypothyroidism, unspecified type 03/03/2025 Refill [facility] Endocrinology [address] [place] [address] Artie Doshi MD Hypothyroidism, unspecified type 02/12/2025 Results Follow-Up [facility] Endocrinology [address] [place] [address] Louie Enrique MBBS 01/30/2025 10:08 AM EDT - 01/30/2025 11:59 PM EDT Hospital Encounter [facility] [address] [facility], [address] [place] [address] Osteopenia of multiple sites Discharge Disposition: Home or Self Care 01/30/2025 Travel 01/23/2025 Travel 01/15/2025 Refill [facility] Endocrinology [address] [place] [address] Ly, Bev B, DO Anterior pituitary hormone deficiency (CMS/HCC) from Last 3 Months Immunizations Immunization Administration Dates Next Due Influenza, high-dose, quadrivalent 08/16/2022,,07/25/2020 Influenza, injectable, quadrivalent 08/09/2019 Pfizer-BioNTech COVID-19 Vac cine (Huerta Cap) 12+ years (vik-sucrose) 02/23/2022 Pfizer-BioNTech COVID-19 Vac cine (Purple Cap) 12+ 08/04/2021,01/12/2021,12/16/2020 Pneumococcal Conjugate PCV 13 07/25/2020 Family History Medical History Relation Name Comments Cataracts Father Walter Shen Stroke Father Walter Shen FH: str elana Cataracts Mother Nicolle Shen Hypertension Mother Nicolle Shen Fam dev history of hypertension Diabetes Other 1 Arthritis Other 2 FH: arthritis Relation Name Status Comments Father Walter Shen Mother Nicolle Shen Other 1 Other 2 Social History Tobacco Use Types Packs/Day Years [...] Orientation Straight 09/30/2021 9: 30 PM EST Last Filed Vital Signs Vital Sign Reading Time Taken Comments Blood Pressure 134/85 12/13/2024 8:10 AM EST Pulse 73 12/13/2024 8:10 AM EST Temperature 36.8 C (98.2 F) 11/07/2024 11:15 AM EST Respiratory Rate 16 11/07/2024 11:15 AM EST Oxygen Saturation 96% 11/07/2024 11:15 AM EST Inhaled Oxygen Concentration - - Weight 74 kg (163 lb 2.3 oz) 12/13/2024 8:10 AM EST Height 162.6 cm (5' 4 ) 12/13/2024 8:10 AM EST Body Mass Index 28 12/13/2024 8:10 AM EST Plan of Treatment Upcoming Encounters Date Type Department Care Team (Late st Contact Info) Description 05/07/2025 8:15 AM EDT Appointment [facility] [address] [facility], [place] [address] 05/07/2025 9:15 AM EDT Appointment [facility] [address] [facility], [place] [address] 05/07/2025 11:00 AM EDT Appointment [facility] [address] [place] [address] 05/08/2025 10:20 AM EDT Office Visit [facility] [address] [place] [address] Cristo Ybarra MD 800 [place], [place] [id number] 06/13/2025 9:00 AM EDT Office Visit [facility] Endocrinology [address] [place] [address] (2), Artie Doshi Fellow 09/10/2025 11:00 AM EST Office Visit [facility] Advanced Eye Care [address] [place] [address] Clay Stanton MD [address] [address] 10/08/2025 10:30 AM EST Ancillary Procedure [facility] Gynecology [address] [facility] [address] [place] [address] 10/08/2025 11:00 AM EST Office Visit [facility] [address] [facility] [address] [place] [address] EnrikeLydia hdz S, FLORIST HELPER [address] [facility] [address] [facility] [address] [place] [address] Health Maintenance Due Date Last Done Comments [facility]-Hepatitis C Screening 1955 [facility]-Medicare Annual Wellness (AWV) 1955 [facility]-Infant/Child/Adol SDOH Screenings 1955 Diabetes: Dental Exam 1965 [facility]- SDOH Screenings 1973 [facility]-Adult SDOH Screenings 1973 [facility]-DTaP,Tdap,and Td Vaccines (1 - Tdap) 1974 [facility]-Zoster Vaccines (1 of 2) 1974 CT Colonography 02/07/2000 Colonoscopy 02/07/2000 FIT-DNA 02/07/2000 FIT 02/07/2000 FOBT 02/07/2000 Sigmoidoscopy 02/07/2000 [facility]-Colorectal Cancer Screening 02/07/2000 [facility]-Breast Cancer Screening 2005 [facility]-RSV Vaccine: 60+ Years or (1 - Risk 60-74 years 1-dose series) 2015 DZC-[id number]-49 Vaccine (8 - Pfizer risk 2023- season) 2025 07/11/2024, 08/15/2023, 08/25/2022, Additional history exists [facility]-Diabetes: Hemoglobin A1C 06/12/2025 12/13/2024 [facility]-Depression Screening 11/07/2025 11/07/2024, 0810/2021 [facility]-Bone Density Scan 01/30/2027 01/30/2025, 023 [facility]-Influenza Vaccine Completed 07/11/2024 , 08/16/2022, 09/04/2021, Additional history exists [facility]-Pneumococcal Vaccine: 50+ Years Completed 08/08/2024, 07/27/2023, 07/25/2020 [facility]-Obesity Intervention Completed 025, 08/26/2024, 06/07/2024, Additional history exists HPV Vaccines Aged Out No longer eligi ble based on patient's age to complete this topic [facility]-HIB Vaccines Aged Out No longer e ligible based on patient's age to complete this topic [facility]-Hepatitis A Vaccines Aged Out No longer eligible based on patient's age to complete this topic [facility]-IPV Vaccines Aged Out No longer e ligible based on patient's age to complete this topic [facility]-Rotavirus Vaccines Aged Out No lo nger eligible based on patient's age to complete this topic Procedures Procedure Name Priority Date/Time Associated Diagnosis Comments DEXA BONE DENSITY Routine 01/30/2025 10: 08 AM EDT Osteopenia of multiple sites POCT GLYCOSYLATED HEMOGLOBIN (HGB A1C) Routine 12/13/2024 9:01 AM EST Type 2 diabetes mellitus without complication, without long-term current use of insulin ([facility]) from Last 3 Months or Most Recently Relevant to Health Maintenance Results * Dexa Bone Density (01/30/2025 10:08 AM EDT) Anatomical Region Laterality Modality L-spine Radiographic Tianna ging Narrative 02/10/2025 2:47 PM EDT [facility] - [facility] [address] [place] [address] DXA Bone Densitometry Report: [01/30/2025] BMD test performed using the buildabrandXA DXA System (analysis version: 14.10) manufactured by [employer]. REFERRING PROVIDER: Dr. Artie Doshi MD CLINICAL INFORMATION: osteoporosis PATIENT NAME: Tessa Clarke PATIENT AGE: 70 y.o. LEGAL SEX: female RADIOGRAPHIC VIEWS: Sites scanned: AP Spine, HIP Right , HIP Left, and TBS COMPARISON STUDY: DXA Axial 01/17/2023 and TBS 01/17/2023 FINDINGS: Based on WHO criteria (post-menopausal female) the diagnosis is Osteopenia The lowest T- score is -1.5 in the RFN There is Stability compared to prior measurements FRAX (10-year probability of fracture) - Major Osteoporotic: 9.8 %; Hip: 1.4 % The presence of arthritic or degenerative joint changes in the spine could artefactually increase measured BMD. TBS: The TBS L1-L4 of 1.422 indicates normal microarchitecture FRAX (10-year probability of fracture) - corrected for TBS: Major Osteoporotic: 8.5 %; Hip: 1.2 % TREATMENT RECOMMENDATIONS: Measured bone density does not cross threshold for treatment Work up for secondary osteoporosis and metabolic bone disease could be considered based on clinical indications. Suggest VFA for complete evaluation. Suggest general measures to optimize calcium and vitamin D status, fall prevention measures and reduce fracture risk. Consider repeating this study in 1 year(s) or as clinically indicated to assess bone density change or response to treatment (should be performed on the same DXA scanner to allow for direct comparison and calculation of change in BMD). us Artie Doshi MD IMG DXA PROCEDURES Final Result * POCT glycosylated hemoglobin (Hb A1C) (12/13/2024 9:01 AM EST) POCT Hemoglobin A1C 6.1 <5.7% Non-Diabe tic % [facility] Kit Lot Number [id number] [facility] Kit Expiration Date 11/22/2026 [facility] Blood Venous blood specimen / Unknown 12/13/2024 9:01 AM EST us Artie Doshi MD POINT OF CARE TEST ENTER/EDIT O RDERABLES Final Result [facility] [address] [place] [address] from Last 3 Months or Most Recently Relevant to Health Maintenance Insurance MEDICARE [facility] Care Teams Pouch Making Machine Operator Relationship Specialty Start Date End Date Piero Basurto MD [address] [facility] [address] [place] [address] PCP - General 03/05/21 Mason Varela MD [address] [facility] [address] [place] [address] Surgeon Neurosurgery 07/08/21 Seymour Li MD 800 [facility] [address] [place] [address] Consulting Physician Medical Oncology 08/11/21 Piero Basurto MD [address], [place] [address] Referring Physician 09/20/21 Kinga Mendez MBBS [address] [place] [address] Fellow Hematology and Oncology 02/15/24 Eric Leon MBBS [address] [place] [address] Fellow Hematology and Oncology 07/24/24
--- OUTSIDE RECORDS SUMMARY | 2025-04-17 12:32 | XMS_ITS | Encounter Summary ---
Author Organization [facility] Address [address] 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) Social History Tobacco Use Types Packs/Day Years [...] AM EDT Appointment [facility] [address] [facility], [place] [address] 05/07/2025 9:15 AM EDT Appointment [facility] [address] [facility], [place] [address] 05/07/2025 11:00 AM EDT Appointment [facility] [address] [place] [address] 05/08/2025 10:20 AM EDT Office Visit [facility] [address] [place] [address] Cristo Ybarra MD 800 [place], [place] [phone] 06/13/2025 9:00 AM EDT Office Visit [facility] Endocrinology [address] [place] [address] (2), Artie Doshi Fellow 09/10/2025 11:00 AM EST Office Visit [facility] Advanced [facility] Care [address] [place] [address] Clay Stanton MD [address] [address] 10/08/2025 10:30 AM EST Ancillary Procedure [facility] Gynecology 800 [facility] [address] [place] [address] 10/08/2025 11:00 AM EST Office Visit [facility]necology [address] [facility] [address] [place] [address] EnrikeLydia hdz S, TRUST OFFICER [address] [facility] [address] [facility] [address] [place] [address] documented as of this encounter Procedures Procedure Name Priority Date/Time Associated Diagnosis Comments AP MISCELLANEOUS LAB TEST (SO) Routine 06/26/2024 12:00 AM EDT 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) documented in this encounter Results * - AP Miscellaneous Test (06/26/2024 12:00 AM EDT) Test name Nini Loera 07/30/2024 7:42 AM EDT [facility] Comment:[id number] A1 Test Result see scan 07/30/2024 7:42 AM EDT [facility] See Scanned Result 07/30/2024 7:42 AM EDT [facility] Tissue 06/26/2024 06/26/2024 10: 45 AM EDT us Purvi Green MD LAB REF LAB BLOOD AND FLUID ORD Final Result [facility] [address] [place] [address] documented in this encounter Visit Diagnoses Diagnosis Secondary malignant neoplasm of other specified sites documented in this encounter Additional Health Concerns Assessment Noted Time A fall risk assessment has been complete d for the patient 06/20/2024 8:41 AM EDT A Body Mass Index follow-up plan has been documented for the patient 06/07/2024 3:02 PM EDT documented as of this encounter Care Teams Web Content Producer Relationship Specialty Start Date End Date Piero Basurto MD [address] [place] [address] PCP - General 03/05/21 Mason Varela MD [address] [place] [address] Surgeon Neurosurgery 07/08/21 Seymour Li MD 800 [facility] [address] [address] Consulting Physician Medical Oncology 08/11/21 Piero Basurto MD [address] [place] [address] Referring Physician 09/20/21 Kinga Mendez MBBS 800 [place] [address] Fellow Hematology and Oncology 02/15/24 Eric Leon MBBS [address] [place], [place] [phone] Fellow Hematology and Oncology 07/24/24 documented as of this encounter
--- OUTSIDE RECORDS SUMMARY | 2025-04-17 12:32 | XMS_ITS | Encounter Summary ---
Author Organization [facility] Address [address] [place] [address] Care Team Providers Care Professor Of Literacy Name Role Phone Piero Basurto MD Primary Care Provider + [phone] Mason Varela MD Unavailable [phone] Seymour Li MD Unavailable Piero Basurto MD Unavailable [phone] Kinga Mendez MBBS Unavailable [phone] Eric Leon MBBS Unavailable [phone] Reason for Visit * Reason Comments Med Refill Encounter Details Date Type Department Care Team (Late st Contact Info) Description 03/07/[facility] [address] [place] [address] Artie Doshi MD [address] [place] [address] Hypothyroidism, unspecified type Social History [...] encounter Miscellaneous Notes * Telephone Encounter - Michaela Cueva PharmD - 03/07/2025 9:00 AM EDT 1 medication(s) has been denied per protocol due to: Refill requested too soon documented in this encounter Plan of Treatment Upcoming Encounters Date Type Department Care Team (Late st Contact Info) Description 05/07/2025 8:15 AM EDT Appointment [facility] [address] [place] [address] 05/07/2025 9:15 AM EDT Appointment [facility] [address] [place] [address] 05/07/2025 11:00 AM EDT Appointment [facility] [address] [place] [address] 05/08/2025 10:20 AM EDT Office Visit [facility] [address] [place] [address] Cristo Ybarra MD 800 [place] [address] 06/13/2025 9:00 AM EDT Office Visit [facility] Endocrinology [address] [place] [address] (2), Artie Doshi Fellow 09/10/2025 11:00 AM EST Office Visit [facility] Eye Care [address] [place] [address] Clay Stanton MD [address] [address] 10/08/2025 10:30 AM EST Ancillary Procedure [facility] [address] [place] [address] 10/08/2025 11:00 AM EST Office Visit [facility] [address] [place] [address] NatomaLydia hdz S, FOOD SERVICE KITCHEN SUPERVISOR [address] [facility] [address] [place] [address] documented as of this encounter Visit Diagnoses Diagnosis Hypothyroidism, unspecified type documented in this encounter Additional Health Concerns Assessment Noted Time A fall risk assessment has been complete d for the patient 11/07/2024 11:22 AM EST A Body Mass Index follow-up plan has been documented for the patient 12/13/2024 10:09 AM EST documented as of this encounter Care Teams Professor Of Literacy Relationship Specialty Start Date End Date Piero Basurto MD [address] [facility] [address] [facility] [address] [place] [address] PCP - General 03/05/21 Mason Varela MD [address] [facility] [address] [place] [address] Surgeon Neurosurgery 07/08/21 Seymour Li MD [address] [facility] [address] [place] [address] Consulting Physician Medical Oncology 08/11/21 Piero Basurto MD [address] [facility] [address] [place] [address] Referring Physician 09/20/21 Kinga Mendez MBBS [address] [place] [address] Fellow Hematology and Oncology 02/15/24 Eric Leon MBBS [address] [place] [address] Fellow Hematology and Oncology 07/24/24 documented as of this encounter
--- OUTSIDE RECORDS SUMMARY | 2025-04-17 12:32 | XMS_ITS | Encounter Summary ---
Author Organization [facility] Address [address] [place] [address] Care Team Providers Care Supervisor Paste Mixing Name Role Phone Piero Basurto MD Primary Care Provider + [phone] Mason Varela MD Unavailable Seymour Li MD Unavailable Piero Basurto MD Unavailable [phone] Kinga Mendez MBBS Unavailable [phone] Eric Leon MBBS Unavailable [phone] Reason for Visit * Reason Comments Med Refill Encounter Details Date Type Department Care Team (Late st Contact Info) Description 03/03/2025 [facility] [address] [place] [address] Artie Doshi MD [address] [place] [address] Hypothyroidism, unspecified type Social History [...] AM EDT Appointment [facility] [address] [facility], [place] [address] 05/07/2025 9:15 AM EDT Appointment [facility] [address] [facility], [place] [address] 05/07/2025 11:00 AM EDT Appointment [facility] [address] [place] [address] 05/08/2025 10:20 AM EDT Office Visit [facility] Multidisciplinary Oncology Clinic [address] [place] [address] Cristo Ybarra MD 800 [place] [address] 06/13/2025 9:00 AM EDT Office Visit [facility] Endocrinology [address] [place] [address] (2), Artie Doshi Fellow 09/10/2025 11:00 AM EST Office Visit [facility] Advanced Eye Care [address] [place] [address] Clay Stanton MD [address] [address] 10/08/2025 10:30 AM EST Ancillary Procedure [facility] Gynecology 800 [facility] [address] [place] [address] 10/08/2025 11:00 AM EST Office Visit [facility] Gynecology 800 [facility] [address] [place] [address] Lydia Calvert APRN [address] [place] [address] documented as of this encounter Visit Diagnoses Diagnosis Hypothyroidism, unspecified type documented in this encounter Additional Health Concerns Assessment Noted Time A fall risk assessment has been complete d for the patient 11/07/2024 11:22 AM EST A Body Mass Index follow-up plan has been documented for the patient 12/13/2024 10:09 AM EST documented as of this encounter Care Teams Supervisor Paste Mixing Relationship Specialty Start Date End Date Piero Basurto MD [address] [place] [address] PCP - General 03/05/21 Mason Varela MD [address] [place] [address] Surgeon Neurosurgery 07/08/21 Seymour Li MD [address] [place] [address] Consulting Physician Medical Oncology 08/11/21 Piero Basurto MD [address] [place] [address] Referring Physician 09/20/21 Kinga Mendez MBBS [address] [place], [place] [address] Fellow Hematology and Oncology 02/15/24 Eric Leon MBBS [address] [place] [address] Fellow Hematology and Oncology 07/24/24 documented as of this encounter
--- OUTSIDE RECORDS SUMMARY | 2025-04-17 12:32 | XMS_ITS | Encounter Summary ---
Author Organization [facility] Address [address] [place] [address] Care Team Providers Care Drapery And Upholstery Estimator Name Role Phone Piero Basurto MD Primary Care Provider + [phone] Mason Varela MD Unavailable [phone] Seymour Li MD Unavailable Piero Basurto MD Unavailable [phone] Kinga Mendez MBBS Unavailable Eric Leon MBBS Unavailable [phone] Reason for Visit * Reason Comments Med Refill Encounter Details Date Type Department Care Team (Late st Contact Info) Description 09/17/2021 Refill [facility] Gynecology [address] [facility] [address] [place] [phone] Kierra Taylor, LINDA, DNP [address] [place] [phone] Social History Tobacco Use Types Packs/Day Years Used Date Smoking Tobacco: Never Smokeless Tobacco: Never Alcohol Use Standard Drinks/Week Comments Never 0 (1 standard drink = 0.6 oz pur e alcohol) PHQ-2 Answer Date Recorded Patient Health Questionnaire-2 Score 0 08/12/2021 Comments No Sex and Gender Information Value Date Recorded Sex Assigned at Female 09/30/2021 9:30 PM EST Legal Sex Female 7:08 PM EDT Gender Identity Female 09/30/2021 9:30 PM EST Sexual Orientation Straight 09/30/2021 9: 30 PM EST COVID-19 Exposure Response Date Recorded In the last month, have you been in contact with someone who was confirmed or suspected to have Coronavirus / COVID-19? No / Unsure 09/09/2021 12:10 PM EST documented as of this encounter Plan of Treatment Upcoming Encounters Date Type Department Care Team ([facility] st Contact Info) Description 05/07/2025 8:15 AM EDT Appointment [facility] Radiology [address] [facility], [place] [address] 05/07/2025 9:15 AM EDT Appointment [facility] [address] [facility], [place] [address] 05/07/2025 11:00 AM EDT Appointment [facility]iology [address] [place] [phone] 05/08/2025 10:20 AM EDT Office Visit [facility] Multidisciplinary Oncology Clinic [address] [place] [phone] Cristo Ybarra MD [address] [place] [address] 06/13/2025 9:00 AM EDT Office Visit [facility] Endocrinology [address] [place] [address] (2), Artie Doshi Fellow 09/10/2025 11:00 AM EST Office Visit [facility] [address] [place] [address] Clay Stanton MD [address] [address] 10/08/2025 10:30 AM EST Ancillary Procedure [facility] Gynecology [address] [facility] [address] [place] [phone] 10/08/2025 11:00 AM EST Office Visit [facility] Gynecology [address] [facility] [address] [place] [address] Lydia Calvert S, DIRECTOR OF CREATIVE SERVICES [address] [place] [address] documented as of this encounter Visit Diagnoses Not on filedocumented in this encounter Additional Health Concerns Assessment Noted Time A fall risk assessment has been complete d for the patient 09/09/2021 12:31 PM EST documented as of this encounter Care Teams Drapery And Upholstery Estimator Relationship Specialty Start Date End Date Piero Basurto MD [address] [place] [address] PCP - General 03/05/21 Mason Varela MD [address] [place] [address] Surgeon Neurosurgery 07/08/21 Seymour Li MD [address] [place] [address] Consulting Physician Medical Oncology 08/11/21 Piero Basurto MD [address] [place] [address] Referring Physician 09/20/21 Kinga Mendez MBBS [address] [place], [place] [phone] Fellow Hematology and Oncology 02/15/24 Eric Leon MBBS [address] [place], [place] [id number] Fellow Hematology and Oncology 07/24/24 documented as of this encounter
--- OUTSIDE RECORDS SUMMARY | 2025-04-17 12:32 | XMS_ITS | Encounter Summary ---
Author Organization [facility] Address [address] [place] [address] Care Team Providers Care Electronic Publisher Name Role Phone Piero Basurto MD Primary Care Provider + [phone] Mason Varela MD Unavailable [phone] Seymour Li MD Unavailable Piero Basurto MD Unavailable [phone] Kinga Mendez MBBS Unavailable [phone] Eric Leon MBBS Unavailable [phone] Reason for Visit * Reason Comments Med Refill Encounter Details Date Type Department Care Team (Late st Contact Info) Description 02/18/2022 Refill [facility] Gynecology 800 [facility] [address] [place] [address] Kierra Tyalor, LINDA, DNP [address] [place] [id number] Social History Tobacco Use Types Packs/Day Years Used Date Smoking Tobacco: Never Smokeless Tobacco: Never Alcohol Use Standard Drinks/Week Comments Never 0 (1 standard drink = 0.6 oz pur e alcohol) PHQ-2 Answer Date Recorded Patient Health Questionnaire-2 Score 0 12/09/2021 Comments No Sex and Gender Information Value Date Recorded Sex Assigned at Female 09/30/2021 9:30 PM EST Legal Sex Female 7:08 PM EDT Gender Identity Female 09/30/2021 9:30 PM EST Sexual Orientation Straight 09/30/2021 9: 30 PM EST COVID-19 Exposure Response Date Recorded In the last 10 days, have teresita u been in contact with someone who was confirmed or suspected to have Coronavirus/COVID-19? No / Unsure 02/03/2022 10:00 AM EDT documented as of this encounter Miscellaneous Notes * Telephone Encounter - Theresa Carranza MD - 02/18/2022 10:47 AM EDT This may be a pharmacy initiated request. The last note from Kierra gave her a final refill and theywere weaning her off HRT. Will hold on refilling for now. documented in this encounter Plan of Treatment Upcoming Encounters Date Type Department Care Team (Late st Contact Info) Description 05/07/2025 8:15 AM EDT Appointment [facility] Radiology [address] [place] [address] 05/07/2025 9:15 AM EDT Appointment [facility] [address] [place] [address] 05/07/2025 11:00 AM EDT Appointment [facility]iology [address] [place] [address] 05/08/2025 10:20 AM EDT Office Visit [facility] [address] [place] [address] Cristo Ybarra MD [address] [place] [address] 06/13/2025 9:00 AM EDT Office Visit [facility] Endocrinology [address] [place] [phone] (2), Artie Doshi Fellow 09/10/2025 11:00 AM EST Office Visit [facility] [address] [place] [address] Clay Stanton MD [address] [place] [address] 10/08/2025 10:30 AM EST Ancillary Procedure [facility]necology [address] [place] [address] 10/08/2025 11:00 AM EST Office Visit [facility] [address] [place] [address] Lydia Calvert S, OCTAVE BOARD ASSEMBLER [address] [facility] [address] [place] [address] documented as of this encounter Visit Diagnoses Not on filedocumented in this encounter Additional Health Concerns Assessment Noted Time A fall risk assessment has been complete d for the patient 12/09/2021 11:25 AM EST documented as of this encounter Care Teams Electronic Publisher Relationship Specialty Start Date End Date Piero Basurto MD [address] [facility] [address] [place] [address] PCP - General 03/05/21 Mason Varela MD [address] [facility] [address] [place] [address] Surgeon Neurosurgery 07/08/21 Seymour Li MD [address] [facility] [address] [place] [address] Consulting Physician Medical Oncology 08/11/21 Piero Basurto MD [address] [place] [address] Referring Physician 09/20/21 Kinga Mendez MBBS [address] [place] [address] Fellow Hematology and Oncology 02/15/24 Eric Leon MBBS [address] [place] [address] Fellow Hematology and Oncology 07/24/24 documented as of this encounter
--- NOTE | 2025-04-17 12:33 | MM_ITS ---
PROCEDURE INFORMATION: Exam: Bilateral Diagnostic Breast Tomosynthesis Exam date and time: 04/17/2025 12:38 PM Clinical indication: Due for annual screening mammogram. Short-term follow-up bilateral diagnostic mammogram for calcifications TECHNIQUE: Imaging protocol: Bilateral Diagnostic tomosynthesis and 2D mammography including computer-aided detection (CAD) when performed. Unilateral or bilateral exam. COMPARISON: 08/30/23, 03/08/2024, 10/11/2024 FINDINGS: MAMMOGRAPHY: Breast composition: The breast is heterogeneously dense, which may obscure small masses. Breast mammogram findings: Magnification views of bilateral upper-outer quadrants demonstrate widespread stable calcifications without change in number or character of calcifications to suggest malignancy No new or suspicious cluster of microcalcifications have developed. No new mass, architectural distortion, or suspicious cluster of calcifications has developed to suggest malignancy. No axillary adenopathy. IMPRESSION: Stable appearance of upper outer calcifications dating back to 08/30/2023. Continued surveillance is recommended to ensure 2 full years of stability. As such, diagnostic mammogram should be performed in 6 months ASSESSMENT: BI-RADS category 3: Probably benign
== END 2025-04-17 23:59 | disposition home or self-care (01) ==
LOC: RAD 12:30
PROVIDERS: PCP Family Medicine; Visit Provider Family Medicine
DX: N64.89 Other specified disorders of breast (principal); R92.333 Mammographic heterogeneous density, bilateral breasts
CPT/HCPCS: 77062; 77066; G0279